=== PATIENT | female | born 1945 | race Caucasian/White ===

== ENCOUNTER 2020-11-15 11:48 | Observation (INO) | payer MEDICARE, SELFPAY ==
[2020-11-15] VITALS (17 sets, daily range): BP systolic 119–166; BP diastolic 57–72; PULSE 80–90; RESP 12–20; TEMP 36.4–36.7; O2SAT 84–100; BMI 22.5
--- NOTE | ~2020-11-15 | US_ITS ---
EXAMINATION: US renal BI EXAM DATE: 11/15/2020 16:26 INDICATION: Renal failure. TECHNIQUE: Multiple grayscale and Doppler images of the kidneys were obtained (by a technologist who performed the scan) and subsequently reviewed. There is no prior study for comparison. FINDINGS: Right kidney: There is normal contour and echogenicity. It measures 9.4 x 4.0 x 4.3 centimeters. Th ere are no focal renal lesions identified. There is no hydronephrosis. Left kidney: There is normal contour and echogenicity. It measures 9.2 x 4.1 x 4.4 centimeters. The re are no focal renal lesions identified. There is no hydronephrosis. Bladder unremarkable. IMPRESSION: 1. Mild bilateral renal atrophy. Reviewed, dictated and finalized at location A. PREVENTION REPRESENTATIVE
--- NOTE | 2020-11-15 11:52 | ED.RECABL ---
HPI - Recheck/Abnormal Lab/Rx General Chief Complaint: Recheck/Abnormal Lab/Rx Stated Complaint: low blood counts Time Seen by Provider: 11/15/20 11:51 History of Present Illness HPI narrative: 75 yo female sent in by PCP for anemia. She reports that she has been increasingly fatigued and SOB for several months. She had labs drawn 2 days ago and was called today and told that she need to come in for a blood tranfusion. She denies dark or bloody stools. She does say that she has noticed blood on the tissue when she wipes her nose. No blood thinners. Related Data Home Medications Medication Instructions Recorded Confirmed fluticasone propionate 50 2 spray NASAL DAILY 08/15/19 11/15/20 mcg/actuation nasal spray,suspension magnesium 250 mg tablet 250 mg PO BID tablet 08/15/19 11/15/20 Allergies Allergy/AdvReac Type Severity Reaction Status Date / Time nitrofurantoin Allergy Intermediate Unknown Verified 11/15/20 17:37 NSAIDS (Non-Steroidal Allergy Intermediate Unknown Verified 11/15/20 17:37 Anti-Inflamma Sulfa (Sulfonamide Allergy Intermediate Unknown Verified 11/15/20 17:37 Antibiotics) tetracycline Allergy Intermediate Unknown Verified 11/15/20 17:37 trazodone Allergy Intermediate Unknown Verified 11/15/20 17:37 estrogens, conjugated Allergy Mild Unknown Verified 11/15/20 17:37 Review of Systems Review of Systems: All systems reviewed & are unremarkable except as noted in HPI and below Constitutional: Constitutional: Reports chills, Reports fatigue and Denies fever(s) Eyes: Eyes: Reports no additional eye complaints ENT: Reports dizziness Cardiovascular: Cardiovascular: Denies chest pain Respiratory: Respiratory: Reports dyspnea on exertion Gastrointestinal: Gastrointestinal: Denies abdominal pain, Denies diarrhea, Denies nausea and Denies vomiting Genitourinary: Genitourinary: Denies hematuria Neurologic: Reports dizziness Hematologic/Lymphatic: Hematologic/Lymphatic: Denies easy bleeding PMFSH Past Medical History Medical History Cervical cancer Status post LEEP/cone. No further treatment needed. Chronic use of opiate drug for therapeutic purpose Degenerative disc disease Fibromyalgia Hypothyroidism Insomnia Irritable bowel syndrome Menieres disease Panic attacks Posttraumatic stress disorder Restless leg syndrome Surgical History Surgical History History of appendectomy History of loop electrical excision procedure (LEEP) For treatment of cervical cancer. No further treatment required. History of ovarian cystectomy History of tonsillectomy History of tubal ligation Status post excision of Rodriguez's neuroma Bilateral. Family History Family History Mother Family history of osteoporosis, Onset Age: 72 Depression, Onset Age: 72 Family history of arthritis, Onset Age: 72 Patient's mother is , Onset Age: 72 Grandparent Hypertension, Onset Age: 67 Cerebrovascular accident, Onset Age: 67 Family history of malignant neoplasm, Onset Age: 80 Family history of heart disease in male family member before age 55, Onset Age: 67 Father Family history of malignant melanoma, Onset Age: 85 Patient's father is , Onset Age: 85 Social History Social History Social History: The patient lives in [place] with her . He has 2 children; she had no children of her own. 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 Smoked for 7 years as a teenager and quit in 1969. No alcohol or illicit substance abuse. She designates her Jaquan Hoffmann as her surrogate decision maker. She wishes to be a do not resuscitate. Spiritual care concerns: No Exam Const: General: no acute distress, alert a
[2020-11-15 12:30] LABS: Basophils Absolute Auto 0.1 K/mm3 (0.0-0.1); Basophils Percent Auto 1.3 % (0.2-1.2); Eosinophils Absolute Auto 0.3 K/mm3 (0-0.3); Eosinophils Percent Auto 3.1 % (0-4.4); Immature Granulocyte Absolute 0.05 K/mm3 (0.00-0.031); Immature Granulocyte Percent A 0.5 % (0-0.5); Lymphocytes Absolute Auto 2.81 K/mm3 (0.9-3.2); Lymphocytes Percent Auto 28.4 % (18.3-44.2); Mean Corpuscular HGB Conc 27.3 g/dl (32-36); Mean Corpuscular Hemoglobin 15.7 pg (26-34); Mean Corpuscular Volume 57.4 fl (80-100); Mean Platelet Volume 8.9 fl (7.4-10.4); Monocytes Absolute Auto 0.9 K/mm3 (0.1-0.6); Monocytes Percent Auto 9.4 % (2.6-8.5); Neutrophils Absolute Auto 5.7 K/mm3 (1.3-6.7); Neutrophils Percent Auto 57.3 % (45.5-73.1); Nucleated Red Blood Cells Perc 0.3 % (0.0-0.2); Platelet Count Result 680 k/mm3 (150-375); Red Blood Count 3.19 M/mm3 (4.2-5.4); Red Cell Distribution Width 17.5 % (11.5-14.5); White Blood Count 9.9 K/mm3 (4.5-10.0)
[2020-11-15 12:39] LABS: INR 0.9; Prothrombin Time 13.1 Seconds (11.1-14.7)
[2020-11-15 12:40] LABS: Partial Thromboplastin Time 26.3 SECONDS (22.3-36.8)
[2020-11-15 12:43] LABS: Alanine Aminotransferase 11 U/L (4-35); Alkaline Phosphatase 75 U/L (38-126); Anion Gap 10 mmol/L (8-16); Aspartate Amino Transferase 25 U/L (14-36); Bilirubin,Total < 0.1 mg/dL (0.2-1.3); Blood Urea Nitrogen 20 mg/dL (7-17); Calcium 8.8 mg/dL (8.4-10.2); Carbon Dioxide 21 mmol/L (22-30); Chloride 100 mmol/L (98-107); Estimated Glomerular Filt Rate 37; Glucose 92 mg/dL (65-105); Potassium 3.9 mmol/L (3.4-5.0); Sodium 131 mmol/L (137-145)
[2020-11-15 12:47] LABS: Hematocrit 18.3 % (37.0-47.0)
[2020-11-15 12:48] LABS: Platelet Estimate Increased (Adequate)
[2020-11-15 12:50] LABS: Anisocytosis 1+ (NORMAL); Hypochromasia 2+ (NORMAL); Microcytosis 1+ (NORMAL); Ovalocytes 1+ (NORMAL); Poikilocytosis 2+ (NORMAL)
[2020-11-15 14:05] LABS: Immature Reticulocyte Fraction 11.2 % (3.0-15.9); Reticulocyte Hemoglobin Conten 15.1 pg (28.2-35.7); Reticulocyte Percent 1.23 % (0.7-4.3); Reticulocytes Absolute 0.04 B/L (32.2-175.7)
[2020-11-15 14:13] LABS: Transferrin 395 mg/dL (206-381)
[2020-11-15] MEDS: SODIUM CHLORIDE 0.9% IV 250 ML 30 ML IV CONT (14:24)
[2020-11-15 14:32] LABS: Iron 16 ug/dL (37-170)
[2020-11-15 14:42] LABS: Percent Iron Saturation 3 % (20-50)
[2020-11-15 15:09] LABS: Ferritin 4.32 ng/mL (11.1-264)
[2020-11-15 15:18] LABS: Folic Acid 3.8 ng/mL (2.76->20); Vitamin B12 > 1000.0 pg/mL (239-931)
--- NOTE | 2020-11-15 16:00 | PM.IMHP ---
H&P: HPI History of Present Illness Date/Time: 11/15/20 15:00 Chief Complaint: ?Low blood count.? Narrative: This is a 75-year-old female with history of anemia off and on iron over the years, hypothyroidism, restless leg syndrome, and chronic pain syndrome who presented to the emergency department at the direction of her primary care provider for evaluation of ?low blood count.? She has not felt 100% like herself dating back to May 2020 when she reportedly had issues with chest pain (throughout the lower ribs and epigastrium) which she attributed to costochondritis. Due to the pain, she stopped doing her exercises and feels that she has become more weak since that time. While the chest pain has resolved she continues to feel weak, despite trying to start back up an exercise routine. In addition to the weakness she has been incredibly fatigued and short of breath with exertion to the point where she has chairs scattered throughout her rooms for her to stop on to rest. She was seen by her primary care provider on November 13 and had labs drawn at that time. Today she was told that she was quite anemic with a hemoglobin and hematocrit of 4.9 and 19.4% respectively and she was directed to the emergency department. With further questioning she has not noticed any significant blood loss however tells me that is not unusual for her to see a small amount of blood on the tissue when she blows her nose. She has occasional heartburn for which she will take an antacid but that is not very frequent and has not increased in intensity or frequency. She takes Bufferin for pain, sometimes none but up to 650 milligrams a day. She has not noticed blood in her stool or dark stools, and fact describes a very light colored stools yesterday. No caffeine or alcohol use. Her weight has remained stable. Review of Systems Review of Systems: Narrative: Twelve systems were reviewed with pertinent positives and negatives as per HPI. The patient has suffered from insomnia since her teenage years, and has been worse over the last several months after she was taken off the Valium that she has to take at nighttime. She has instead taking nortriptyline which does not seem to help and in fact she tells me she has not really slept for the last 3 days due to severe insomnia. Weight has remained stable. No fever, chills, or sweats. No recent cold or flu symptoms. She denies chest pain and pleuritic pain. No nausea or vomiting. Except as documented, all other systems were reviewed and are negative. [facility] Past Medical History Medical History (Updated 11/15/20 @ 18:10 by Ale Looney PA-C) Cervical cancer Status post LEEP/cone. No further treatment needed. Chronic use of opiate drug for therapeutic purpose Degenerative disc disease Fibromyalgia Hypothyroidism Insomnia Irritable bowel syndrome Menieres disease Panic attacks Posttraumatic stress disorder Restless leg syndrome Surgical History Surgical History (Updated 11/15/20 @ 18:10 by Ale Looney PA-C) History of appendectomy History of loop electrical excision procedure (LEEP) For treatment of cervical cancer. No further treatment required. History of ovarian cystectomy History of tonsillectomy History of tubal ligation Status post excision of Rodriguez's neuroma Bilateral. Family History Family History Mother Family history of osteoporosis, Onset Age: 72 Depression, Onset Age: 72 Family history of arthritis, Onset Age: 72 Patient's mother is , Onset Age: 72 Grandparent Hypertension, Onset Age: 67 Cerebrovascular accident, Onset Age: 67 Family history of malignant neoplasm, Onset Age: 80 Family history of heart disease in male family member before age 55, Onset Age: 67 Father Family history of malignant melanoma, Onset Age: 85 Patient's father is , Onset Age: 85 Social History
--- NOTE | 2020-11-15 17:16 | ADMGEN ---
This patient, Katie Cacnino, was admitted to Medical Room 346-01. Patient/family oriented to hospital policies and general routines including ID bracelet, bed and alarms, visiting hours, pain management, procedures, bathroom and other care routines, personal items, smoking policy, room service/diet, and visiting hours. Information on how to activate the Rapid Response Team has been discussed. Patient/Family are encouraged to report perceived risks to care and to ask questions if they do not understand what they are told or what they should do.
[2020-11-15 17:31] LABS: Free T4 Free Thyroxine Reflex 1.29 ng/dL (0.78-2.19)
[2020-11-15] MEDS: SODIUM CHLORIDE 0.9% IV 250 ML 30 ML (18:12)
[2020-11-15 18:46] LABS: Total Triiodothyronine (T3) 1.07 NG/ML (0.97-1.69)
[2020-11-15] MEDS: PANTOPRAZOLE SODIUM IV 40 MG VIAL IV PUSH (20:14)
[2020-11-15] MEDS: TEMAZEPAM (*CRX) 15 MG CAPSULE PO (20:14)
[2020-11-15 21:40] LABS: Hemoglobin 8.5 g/dL (12.0-15.0)
[2020-11-16 04:14] LABS: Basophils Absolute Auto 0.2 K/mm3 (0.0-0.1); Basophils Percent Auto 1.7 % (0.2-1.2); Eosinophils Absolute Auto 0.5 K/mm3 (0-0.3); Eosinophils Percent Auto 5.2 % (0-4.4); Hematocrit 29.9 % (37.0-47.0); Immature Granulocyte Absolute 0.03 K/mm3 (0.00-0.031); Immature Granulocyte Percent A 0.3 % (0-0.5); Lymphocytes Absolute Auto 2.88 K/mm3 (0.9-3.2); Lymphocytes Percent Auto 32.3 % (18.3-44.2); Mean Corpuscular HGB Conc 30.1 g/dl (32-36); Mean Corpuscular Hemoglobin 20.5 pg (26-34); Mean Corpuscular Volume 68.1 fl (80-100); Mean Platelet Volume 8.7 fl (7.4-10.4); Monocytes Percent Auto 10.7 % (2.6-8.5); Neutrophils Absolute Auto 4.4 K/mm3 (1.3-6.7); Neutrophils Percent Auto 49.8 % (45.5-73.1); Platelet Count Result 619 k/mm3 (150-375); Red Blood Count 4.39 M/mm3 (4.2-5.4); Red Cell Distribution Width 27.4 % (11.5-14.5); White Blood Count 8.9 K/mm3 (4.5-10.0)
[2020-11-16 04:31] LABS: Anion Gap 5 mmol/L (8-16); Blood Urea Nitrogen 15 mg/dL (7-17); Calcium 8.8 mg/dL (8.4-10.2); Carbon Dioxide 23 mmol/L (22-30); Chloride 106 mmol/L (98-107); Estimated CRCL calculation 35 ml/min; Estimated Glomerular Filt Rate 54; Glucose 89 mg/dL (65-105); Magnesium 2.2 mg/dL (1.6-2.3); Potassium 4.4 mmol/L (3.4-5.0); Sodium 134 mmol/L (137-145)
[2020-11-16 05:37] VITALS: BP 150/75; PULSE 84; RESP 18; TEMP 36.2; O2SAT 99
[2020-11-16] MEDS: PANTOPRAZOLE SODIUM IV 40 MG VIAL IV PUSH (08:36)
[2020-11-16] MEDS: MAGNESIUM 13.5 MG TABLET (250 MG MAG GLUCONATE) PO (08:36)
[2020-11-16] MEDS: FLUTICASONE PROPIONATE 0.05% NA SPR 16 GM BTL (*BKC) 2 SPRAY NASAL (08:36)
[2020-11-16 10:09] LABS: Hemoglobin 8.8 g/dL (12.0-15.0)
[2020-11-16 10:58] VITALS: O2SAT 100
[2020-11-16 14:00] VITALS: BP 137/54; PULSE 86; RESP 18; TEMP 35.9; O2SAT 100
[2020-11-16] MEDS: IRON SUCROSE COMPLEX 200 MG in SODIUM CHLORIDE 0.9% IV 50 ML 120 MG IVPB (14:03)
[2020-11-16] MEDS: polyethylene glycoL 3350 17 GM POWD.PACK PO (14:29)
[2020-11-16 15:11] LABS: Hematocrit 30.4 % (37.0-47.0); Hemoglobin 9.2 g/dL (12.0-15.0)
--- NOTE | 2020-11-16 15:22 | WPDGICN ---
Assessment and Plan Assessment and plan (1) Acute blood loss anemia: Code(s): D62 - Acute posthemorrhagic anemia Status: Acute Assessment and Plan: when RN called me yesterday, I ordered bowel prep in order to get a colonoscopy with egd today but she refused. I talked to her this morning and she says that would like to see her pcp before doing any procedures. I told her that she could have malignancy like colon cancer, another differential is ulcers, avm's, etc. She has been taking aspirin at home. if she changes her mind I encouraged her to call my office so we can schedule both procedures as outpatient (2) Iron deficiency anemia: Code(s): D50.9 - Iron deficiency anemia, unspecified Status: Acute Assessment and Plan: better after blood transfusion we need to rule out occult gi blood loss but she refused scopes (3) Renal failure: Code(s): N19 - Unspecified kidney failure Status: Acute Assessment and Plan: mild and resolved after fluids (4) Fibromyalgia: Code(s): M79.7 - Fibromyalgia Status: Chronic (5) Insomnia: Code(s): G47.00 - Insomnia, unspecified Status: Chronic GI Consult Note Consult date/time: 11/16/20 15:22 Reason for consult: symptomatic iron deficiency anemia HPI: Katie Cancino is a 75 year old female here with few months of worsening fatigue and progressive shortness of breath on exertion, couple days ago her PCP obtained blood work and showed severe microcytic anemia, she was told to come to ER for further evaluation and received blood transfusion, now she is feeling better. Sometimes noticed blood on the tissue when she wipes her nose. Denies overt gib, melena. Never had EGD and no recent colonoscopy. Denies weight loss. Hb was 4.9, mcv 60 and consistent with iron deficiency. No nsaid's but she uses aspirin as needed for pain. Review of Systems Constitutional: Constitutional: Reports fatigue and Reports lethargy Eyes: Eyes: Reports no additional eye complaints ENT: Reports system reviewed and no additional complaints, except as documented Cardiovascular: Cardiovascular: Denies chest pain Respiratory: Respiratory: Reports dyspnea on exertion Gastrointestinal: Gastrointestinal: Denies hematochezia and Denies nausea Genitourinary: Genitourinary: Denies flank pain Musculoskeletal: Musculoskeletal: Reports no additional musculoskeletal complaints Neurologic: Denies confusion Psychiatric: Psychiatric: Reports no additional psychiatric complaints Endocrine: Endocrine: Denies cold intolerance [facility] Past Medical History Medical History Cervical cancer Status post LEEP/cone. No further treatment needed. Chronic use of opiate drug for therapeutic purpose Degenerative disc disease Fibromyalgia Hypothyroidism Insomnia Irritable bowel syndrome Menieres disease Panic attacks Posttraumatic stress disorder Restless leg syndrome Surgical History Surgical History History of appendectomy History of loop electrical excision procedure (LEEP) For treatment of cervical cancer. No further treatment required. History of ovarian cystectomy History of tonsillectomy History of tubal ligation Status post excision of Rodriguez's neuroma Bilateral. Family History Family History Mother Family history of osteoporosis, Onset Age: 72 Depression, Onset Age: 72 Family history of arthritis, Onset Age: 72 Patient's mother is , Onset Age: 72 Grandparent Hypertension, Onset Age: 67 Cerebrovascular accident, Onset Age: 67 Family history of malignant neoplasm, Onset Age: 80 Family history of heart disease in male family member before age 55, Onset Age: 67 Father Family history of malignant melanoma, Onset Age: 85 Patient's fathe
--- NOTE | 2020-11-16 15:52 | PM.DS ---
DS: Admitting Diagnosis Admitting Diagnosis Admitting Diagnosis: Anemia DS: Discharge Diagnosis Discharge Diagnosis (1) Profound anemia: Code(s): D64.9 - Anemia, unspecified Status: Acute Assessment and Plan: The patient has profound microcytic anemia. Suspicious for occult GI loss. she was transfused 2 units PRBC on 11/15/2020. Hemoglobin stabilized following. her vital signs were stable and she had no evidence of ongoing blood loss, although occult GI loss was unable to be ruled out. She was unable to provide a stool specimen to evaluate for occult blood. EGD and colonoscopy recommended per GI, but patient refused this procedure and wished to see her primary care provider before proceeding. She was educated on risks of deferring this procedure, which she understood. She will repeat H&H on Thursday, 2 days following discharge, and will need to promptly follow up with her PCP to schedule EGD and colonoscopy. Discussed worrisome signs of anemia/blood loss for which to return. Iron studies consistent with iron deficiency anemia and she was started on PO iron supplementation. Also started on protonix. Educated to avoid NSAIDs/aspirin until further evaluation. (2) Renal failure: Code(s): N19 - Unspecified kidney failure Status: Acute Assessment and Plan: Creatinine was 0.92 in May 2018, no labs available since that time. creatinine slightly elevated at 1.4 upon presentation, likely due to hypoperfusion from hypovolemia. Creatinine improved following transfusion and was 1.0 at time of discharge. renal ultrasound showed mild bilateral renal atrophy without hydronephrosis. (3) Hypothyroidism: Code(s): E03.9 - Hypothyroidism, unspecified Status: Chronic Assessment and Plan: TSH slightly elevated with normal free T4 and T3. Continue levothyroxine. plan for repeat TSH in 4-6 weeks. No adjustment made to her levothyroxine. (4) Chronic use of opiate drug for therapeutic purpose: Code(s): Z79.891 - [employer] (current) use of opiate analgesic Status: Acute Assessment and Plan: Tramadol as needed for chronic pain. discussed maintaining a bowel regimen to avoid constipation with opioids. (5) Insomnia: Code(s): G47.00 - Insomnia, unspecified Status: Chronic Assessment and Plan: Patient reports she Had not slept for 2-3 days and was very exhausted. She received a 1 time dose of Restoril. She reports she slept well following. Continue nortriptyline. Follow-up with PCP. DS: Summary Hospital Course Reason for hospitalization: anemia Hospital Course: date of admission: 11/15/2020 date of discharge: 11/16/2020 Katie dugan is a 75-year-old female with history of anemia, hypothyroidism, restless leg syndrome, and chronic pain syndrome who presented to the emergency department on 11/15/2020 at the direction of her primary care provider due to findings of anemia on recent outpatient lab work. She reports that she has been feeling poorly for quite some time with generalized fatigue, weakness, and shortness of breath. She was informed that her hemoglobin and hematocrit were 4.9 19.4% respectively on outpatient labs, therefore she was directed to the ED. Upon presentation to the emergency department, her vital signs were stable hemoglobin 5.0, hematocrit 18.3, platelets elevated at 680, BUN and creatinine slightly elevated with additional electrolytes stable. She was admitted to the hospitalist service for further evaluation and management was seen in consultation by gastroenterology. Please see above for further details. Was recommended that she obtain EGD and colonoscopy to evaluate for GI bleeding, however she wished to defer this procedure. Her hemoglobin and hematocrit stabilized following transfusion and she began feeling much better. She wished to return home and follow-up with her primary care provider as soon as possible.
== END 2020-11-16 16:41 | disposition home or self-care (01) ==
LOC: ANHED 12:15 → ANH3MED 16:16
PROVIDERS: Physician Assistant; Admitting Provider Internal Medicine; Emergency Provider Emergency Medicine; PCP Internal Medicine; Visit Provider Physician Assistant
DX: D64.9 Anemia, unspecified (principal); Z23 Encounter for immunization; N19 Unspecified kidney failure; E03.9 Hypothyroidism, unspecified; Z79.891 Long term (current) use of opiate analgesic; G47.00 Insomnia, unspecified; G89.4 Chronic pain syndrome; G25.81 Restless legs syndrome; Z85.41 Personal history of malignant neoplasm of cervix uteri
CPT/HCPCS: 36415; 36430; 76775; 80048; 80053; 82607; 82728; 82746; 83540; 83550; 83735; 84439; 84443; 84466; 84480; 85014; 85018; 85025; 85046; 85610; 85730; 86850; 86900; 86901; 86923; 90471; 90653; 96361; 96365; 96375; 96376; 99285; A9270; C9113; G0008; G0378; J1756; J7050; P9016

== ENCOUNTER 2020-11-19 14:52 | Outpatient (CLI) | payer MEDICARE, SELFPAY ==
[2020-11-19 15:58] LABS: Basophils Absolute Auto 0.1 K/mm3 (0.0-0.1); Basophils Percent Auto 0.7 % (0.2-1.2); Eosinophils Absolute Auto 0.1 K/mm3 (0-0.3); Eosinophils Percent Auto 1.4 % (0-4.4); Hematocrit 30.2 % (37.0-47.0); Immature Granulocyte Absolute 0.06 K/mm3 (0.00-0.031); Immature Granulocyte Percent A 0.7 % (0-0.5); Lymphocytes Absolute Auto 1.73 K/mm3 (0.9-3.2); Lymphocytes Percent Auto 21.6 % (18.3-44.2); Mean Corpuscular HGB Conc 29.8 g/dl (32-36); Mean Corpuscular Hemoglobin 20.1 pg (26-34); Mean Corpuscular Volume 67.4 fl (80-100); Mean Platelet Volume 8.7 fl (7.4-10.4); Monocytes Percent Auto 12.9 % (2.6-8.5); Neutrophils Percent Auto 62.7 % (45.5-73.1); Platelet Count Result 651 k/mm3 (150-375); Red Blood Count 4.48 M/mm3 (4.2-5.4); Red Cell Distribution Width 29.8 % (11.5-14.5)
[2020-11-19 18:01] LABS: Hypochromasia 2+ (NORMAL); Ovalocytes 1+ (NORMAL); Platelet Estimate Adequate (Adequate); Target Cells 1+ (NORMAL)
== END 2020-11-19 14:53 | disposition home or self-care (01) ==
LOC: ANHLAB 14:54
PROVIDERS: PCP Internal Medicine; Visit Provider Physician Assistant
DX: D50.9 Iron deficiency anemia, unspecified (principal); D47.3 Essential (hemorrhagic) thrombocythemia
CPT/HCPCS: 36415; 85025

== ENCOUNTER → 2021-01-05 01:02 | Outpatient (CLI) | payer MEDICARE, SELFPAY ==
[2021-01-05 20:53] LABS: SARS-CoV-2 RNA PCR Negative
== END ==
PROVIDERS: PCP Internal Medicine; Visit Provider Internal Medicine Gastroenterology
DX: Z01.812 Encounter for preprocedural laboratory examination (principal); Z20.822 Contact with and (suspected) exposure to COVID-19
CPT/HCPCS: C9803; U0003; U0005

== ENCOUNTER 2021-01-08 02:39 | Day surgery (SDC) | payer MEDICARE, SELFPAY ==
[2020-12-31 13:45] VITALS: BMI 20.1
[2021-01-08 06:33] VITALS: BP 145/62; PULSE 97; RESP 16; TEMP 36.4; O2SAT 100; BMI 20.8
[2021-01-08] MEDS: LACTATED RINGERS 1,000 ML 150 ML IV CONT (06:45)
--- NOTE | 2021-01-08 07:26 | WPDANESEPPF ---
Anes - Initial Pre Proc Eval Procedure: Operation Date: 01/08/21 07:30 Proposed Procedures p Esophagogastroduodenoscopy & Colonoscopy - Torito Pickard MD Date/Time: 01/08/21 07:26 Surgeon: Torito Pickard MD Pre Op Diagnosis: ELIZABETH Patient Data Age: 75 Gender: F Height: 5 ft 2 in Weight: 51.7 kg Last Vital Signs Temp 97.5 F L 01/08/21 06:33 Pulse 97 01/08/21 06:33 Resp 16 01/08/21 06:33 BP 145/62 H 01/08/21 06:33 Pulse Ox 100 01/08/21 06:33 Allergies Allergy/AdvReac Type Severity Reaction Status Date / Time nitrofurantoin Allergy Intermediate Unknown Verified 01/08/21 06:32 NSAIDS (Non-Steroidal Allergy Intermediate Unknown Verified 01/08/21 06:32 Anti-Inflamma Sulfa (Sulfonamide Allergy Intermediate Unknown Verified 01/08/21 06:32 Antibiotics) tetracycline Allergy Intermediate Unknown Verified 01/08/21 06:32 trazodone Allergy Intermediate Unknown Verified 01/08/21 06:32 estrogens, conjugated Allergy Mild Unknown Verified 01/08/21 06:32 Home Medications Medication Instructions Recorded Confirmed Type fluticasone propionate 50 2 spray NASAL DAILY 08/15/19 12/31/20 History mcg/actuation nasal spray,suspension magnesium 250 mg tablet 250 mg PO BID tablet 08/15/19 12/31/20 History levothyroxine 50 mcg tablet 50 mcg PO DAILY #90 tablet 11/14/20 12/31/20 Rx ferrous gluconate 324 mg (38 mg 324 mg PO DAILY #90 tablet 12/18/20 12/31/20 Rx iron) tablet tramadol 50 mg tablet 50 mg PO Q6H PRN #120 tablet 12/31/20 Rx Patient hx anesthesia problems: none Family hx anesthesia problems: none PMFSH Past Medical History Medical History Acute blood loss anemia Cervical cancer Status post LEEP/cone. No further treatment needed. Chronic use of opiate drug for therapeutic purpose Degenerative disc disease Fibromyalgia Hypothyroidism Insomnia Iron deficiency anemia Irritable bowel syndrome Menieres disease Panic attacks Posttraumatic stress disorder Restless leg syndrome Surgical History Surgical History History of appendectomy History of loop electrical excision procedure (LEEP) For treatment of cervical cancer. No further treatment required. History of ovarian cystectomy History of tonsillectomy History of tubal ligation Status post excision of Rodriguez's neuroma Bilateral. Family History Family History Mother Family history of osteoporosis, Onset Age: 72 Depression, Onset Age: 72 Family history of arthritis, Onset Age: 72 Patient's mother is , Onset Age: 72 Grandparent Hypertension, Onset Age: 67 Cerebrovascular accident, Onset Age: 67 Family history of malignant neoplasm, Onset Age: 80 Family history of heart disease in male family member before age 55, Onset Age: 67 Father Family history of malignant melanoma, Onset Age: 85 Patient's father is , Onset Age: 85 Social History Social History Social History: The patient lives in [place] with her . He has 2 children; she had no children of her own. 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 No alcohol or illicit substance abuse. She designates her Jaquan Hoffmann as her surrogate decision maker. She wishes to be a do not resuscitate. Smoking packs per day: 1 Smoking cigarettes per day: 20.0 Years smoked: 7 Smoking pack-years: 7.00 Smoking status: Former smoker Tobacco type: cigarettes Alcohol intake: never Substance use: never Substance use type: does not use Living arrangements: with family Spiritual care concerns: No Anes - Eval Final PreProcedure Day of Procedure 01/08/21 07:26 Patient miller
--- NOTE | 2021-01-08 07:32 | PM.HPGS ---
History of Present Illness History of Present Illness Consent: Risks, benefits, and alternatives have been discussed and questions answered. Patient agrees to proceed with procedure. Chief complaint: ELIZABETH Narrative: Katie Cancino is a 75 year old female with recent hospitalization because symptomatic ELIZABETH, never had scopes Review of Systems Constitutional: Constitutional: Denies headache(s) and Denies weakness Eyes: Eyes: Denies blurry vision ENT: Reports Normal hearing present, Denies headache(s) and Denies neck pain Cardiovascular: Cardiovascular: Denies chest pain and Denies dyspnea Respiratory: Respiratory: Denies dyspnea Gastrointestinal: Gastrointestinal: Reports no additional gastrointestinal complaints Genitourinary: Genitourinary: Denies dysuria Musculoskeletal: Musculoskeletal: Denies neck pain Integumentary/Breasts: Skin/Breast: Denies dry skin Neurologic: Reports Normal hearing present, Denies headache(s) and Denies weakness Psychiatric: Psychiatric: Denies anxiety Endocrine: Endocrine: Denies change in body appearance Hematologic/Lymphatic: Hematologic/Lymphatic: Denies easy bleeding Allergic/Immunologic: Allergic/Immunologic: Denies urticaria PMFSH Past Medical History Medical History Acute blood loss anemia Cervical cancer Status post LEEP/cone. No further treatment needed. Chronic use of opiate drug for therapeutic purpose Degenerative disc disease Fibromyalgia Hypothyroidism Insomnia Iron deficiency anemia Irritable bowel syndrome Menieres disease Panic attacks Posttraumatic stress disorder Restless leg syndrome Surgical History Surgical History History of appendectomy History of loop electrical excision procedure (LEEP) For treatment of cervical cancer. No further treatment required. History of ovarian cystectomy History of tonsillectomy History of tubal ligation Status post excision of Rodriguez's neuroma Bilateral. Family History Family History Mother Family history of osteoporosis, Onset Age: 72 Depression, Onset Age: 72 Family history of arthritis, Onset Age: 72 Patient's mother is , Onset Age: 72 Grandparent Hypertension, Onset Age: 67 Cerebrovascular accident, Onset Age: 67 Family history of malignant neoplasm, Onset Age: 80 Family history of heart disease in male family member before age 55, Onset Age: 67 Father Family history of malignant melanoma, Onset Age: 85 Patient's father is , Onset Age: 85 Social History Social History Social History: The patient lives in [place] with her . He has 2 children; she had no children of her own. Retired [employer]. Smoked for 7 years as a teenager and quit in 1969. No alcohol or illicit substance abuse. She designates her Jaquan Hoffmann as her surrogate decision maker. She wishes to be a do not resuscitate. Smoking packs per day: 1 Smoking cigarettes per day: 20.0 Years smoked: 7 Smoking pack-years: 7.00 Smoking status: Former smoker Tobacco type: cigarettes Alcohol intake: never Substance use: never Substance use type: does not use Living arrangements: with family Spiritual care concerns: No Meds Home Medications and Allergies Home Medications Medication Instructions Recorded Confirmed Type fluticasone propionate 50 2 spray NASAL DAILY 08/15/19 12/31/20 History mcg/actuation nasal spray,suspension magnesium 250 mg tablet 250 mg PO BID tablet 08/15/19 12/31/20 History levothyroxine 50 mcg tablet 50 mcg PO DAILY #90 tablet 11/14/20 12/31/20 Rx ferrous gluconate 324 mg (38 mg 324 mg PO DAILY #90 tablet 12/18/20 12/31/20 Rx iron) tablet tramadol 50
[2021-01-08 08:14] VITALS: BP 127/48; PULSE 80; RESP 22; O2SAT 100
[2021-01-08 08:24] VITALS: BP 122/62; PULSE 81; RESP 20; O2SAT 100
[2021-01-08 08:34] VITALS: BP 121/92; PULSE 75; RESP 18; O2SAT 100
== END 2021-01-08 08:39 | disposition home or self-care (01) ==
PROVIDERS: PCP Internal Medicine; Visit Provider Internal Medicine Gastroenterology
PROC: 0DJ08ZZ Inspection of Upper Intestinal Tract, Via Natural or Artificial Opening Endoscopic (ICD-10-PCS; CPT 43235; principal; 2021-01-08 07:30)
DX: D50.0 Iron deficiency anemia secondary to blood loss (chronic) (principal); K29.50 Unspecified chronic gastritis without bleeding; K22.2 Esophageal obstruction; K31.5 Obstruction of duodenum; K44.9 Diaphragmatic hernia without obstruction or gangrene; K58.9 Irritable bowel syndrome, unspecified; K64.8 Other hemorrhoids; M79.7 Fibromyalgia; E03.9 Hypothyroidism, unspecified; H81.09 Meniere's disease, unspecified ear; G25.81 Restless legs syndrome; F41.0 Panic disorder [episodic paroxysmal anxiety]; F43.10 Post-traumatic stress disorder, unspecified; Z85.41 Personal history of malignant neoplasm of cervix uteri
CPT/HCPCS: 43249; 43245; 43239; 45378; 87081; 88305; C1726; J2704; J7120

== ENCOUNTER 2021-05-10 03:40 | Day surgery (SDC) | payer MEDICARE, SELFPAY ==
[2021-05-01 12:19] VITALS: BMI 21.7
[2021-05-10 09:52] VITALS: BP 123/48; PULSE 83; RESP 16; TEMP 36.2; O2SAT 100; BMI 22.0
[2021-05-10] MEDS: LACTATED RINGERS 1,000 ML 150 ML IV CONT (09:59)
--- NOTE | 2021-05-10 10:07 | WPDANESEPPF ---
Anes - Initial Pre Proc Eval Procedure: Operation Date: 05/10/21 10:30 Proposed Procedures p Esophagogastroduodenoscopy - Torito Pickard MD Date/Time: 05/10/21 10:07 Surgeon: Torito Pickard MD Pre Op Diagnosis: peptic ulcer disease k31.89 Patient Data Age: 75 Gender: F Height: 1.57 m Weight: 54.7 kg Last Vital Signs Temp 97.1 F L 05/10/21 09:52 Pulse 83 05/10/21 09:52 Resp 16 05/10/21 09:52 BP 123/48 L 05/10/21 09:52 Pulse Ox 100 05/10/21 09:52 Allergies Allergy/AdvReac Type Severity Reaction Status Date / Time nitrofurantoin Allergy Intermediate Unknown Verified 05/10/21 09:52 NSAIDS (Non-Steroidal Allergy Intermediate Unknown Verified 05/10/21 09:52 Anti-Inflamma Sulfa (Sulfonamide Allergy Intermediate Unknown Verified 05/10/21 09:52 Antibiotics) tetracycline Allergy Intermediate Unknown Verified 05/10/21 09:52 trazodone Allergy Intermediate Unknown Verified 05/10/21 09:52 estrogens, conjugated Allergy Mild Unknown Verified 05/10/21 09:52 Home Medications Medication Instructions Recorded Confirmed Type fluticasone propionate 50 2 spray NASAL DAILY 08/15/19 05/01/21 History mcg/actuation nasal spray,suspension magnesium 250 mg tablet 250 mg PO BID tablet 08/15/19 05/01/21 History ferrous gluconate 324 mg (38 mg 324 mg PO DAILY #90 tablet 12/18/20 05/01/21 Rx iron) tablet Patient hx anesthesia problems: none Family hx anesthesia problems: none PMFSH Past Medical History Medical History (Updated 04/25/21 @ 13:36 by Torito Pickard MD) Acute blood loss anemia Cervical cancer Status post LEEP/cone. No further treatment needed. Chronic use of opiate drug for therapeutic purpose Degenerative disc disease Fibromyalgia Gastritis and duodenitis Hypothyroidism Insomnia Iron deficiency anemia Irritable bowel syndrome Menieres disease Panic attacks Posttraumatic stress disorder Restless leg syndrome Stricture, duodenum Surgical History Surgical History History of appendectomy History of loop electrical excision procedure (LEEP) For treatment of cervical cancer. No further treatment required. History of ovarian cystectomy History of tonsillectomy History of tubal ligation Status post excision of Rodriguez's neuroma Bilateral. Family History Family History Mother Family history of osteoporosis, Onset Age: 72 Depression, Onset Age: 72 Family history of arthritis, Onset Age: 72 Patient's mother is , Onset Age: 72 Grandparent Hypertension, Onset Age: 67 Cerebrovascular accident, Onset Age: 67 Family history of malignant neoplasm, Onset Age: 80 Family history of heart disease in male family member before age 55, Onset Age: 67 Father Family history of malignant melanoma, Onset Age: 85 Patient's father is , Onset Age: 85 Social History Social History Social History: The patient lives in [place] with her . He has 2 children; she had no children of her own. 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 Smoked for 7 years as a teenager and quit in 1969. No alcohol or illicit substance abuse. She designates her Jaquan Hoffmann as her surrogate decision maker. She wishes to be a do not resuscitate. Smoking packs per day: 1 Smoking cigarettes per day: 20.0 Years smoked: 7 Smoking pack-years: 7.00 Smoking status: Former smoker Tobacco type: cigarettes Alcohol intake: never Substance use: former Substance use type: marijuana Other substance usage details: 20's Living arrangements: with family Gender identity (if verbalized by the patient): Female Spiritual care concerns: No Anes - Eval Final PreProcedure Day of Procedure 05/10/21 10:07
--- NOTE | 2021-05-10 10:21 | WPDHPUPDATE1 ---
History and Physical Update Update Date/Time: 05/10/21 10:21 History and Physical has been reviewed, including an updated exam of the patient. There are NO changes in the patient's condition. Risks, benefits, and alternatives have been discussed and questions answered. Patient agrees to proceed with procedure.
[2021-05-10 10:40] VITALS: BP 101/51; PULSE 72; RESP 18; O2SAT 100
[2021-05-10 10:50] VITALS: BP 110/67; PULSE 78; RESP 18; O2SAT 100
[2021-05-10 11:00] VITALS: BP 118/56; PULSE 67; RESP 20; O2SAT 100
== END 2021-05-10 11:17 | disposition home or self-care (01) ==
PROVIDERS: PCP Family Medicine; Visit Provider Internal Medicine Gastroenterology
PROC: 0DJ08ZZ Inspection of Upper Intestinal Tract, Via Natural or Artificial Opening Endoscopic (ICD-10-PCS; CPT 43235; principal; 2021-05-10 10:30)
DX: D50.9 Iron deficiency anemia, unspecified (principal); K44.9 Diaphragmatic hernia without obstruction or gangrene; K22.2 Esophageal obstruction; K29.50 Unspecified chronic gastritis without bleeding; K29.90 Gastroduodenitis, unspecified, without bleeding; K31.5 Obstruction of duodenum; E03.9 Hypothyroidism, unspecified; M79.7 Fibromyalgia; K58.9 Irritable bowel syndrome, unspecified; H81.09 Meniere's disease, unspecified ear; G25.81 Restless legs syndrome; F43.10 Post-traumatic stress disorder, unspecified; F41.0 Panic disorder [episodic paroxysmal anxiety]; Z85.41 Personal history of malignant neoplasm of cervix uteri; Z79.891 Long term (current) use of opiate analgesic; Z87.891 Personal history of nicotine dependence
CPT/HCPCS: 43239; 88305; J2001; J2704; J7120

== ENCOUNTER 2025-01-09 14:18 | Outpatient (CLI) | payer MEDICARE, SELFPAY ==
--- OUTSIDE RECORDS SUMMARY | 2025-01-09 16:25 | XMS_ITS | Clinical Summary ---
Author Organization [facility] Digital Assent Address [address] [facility] [place] [address] Care Team Providers Care Coke Worker Name Role Phone Obdulio Gauthier MD Primary Care Provider Source Comments [facility],non-owned Affiliates and Associated Physician Practices is amultiple site organization consisting of ambulatory clinics and hospital sitesin [place], [place], [place] and [place]. This disclosure is being madepursuant to the Care Everywhere program and may not contain all information available regarding this patient. Last updated 18.[facility] [employer] Allergies Active Allergy Reactions Criticality Noted Date Comments Estrogens Conjugated 06/29/2017 Nitrofurantoin 06/29/2017 Shellfish Allergy 06/29/2017 scallops Sulfa Drugs 06/29/2017 Tetracycline 06/29/2017 Immunizations Immunization Administration Dates Next Due INFLUENZA VACCINE, HIGH-DOSE , QUADR. (FLUZONE HIGH-DOSE QUADRIVALENT; 65Y+), 0.7 ML (HD-IIV4) 07/06/2018,06/29/2017 Social History Tobacco Use Types Packs/Day Years Used Date Smoking Tobacco: Never Assessed Comments Unknown Sex and Gender Information Value Date Recorded Sex Assigned at Not on file Legal Sex Female 9:48 AM CDT Gender Identity Not on file Sexual Orientation Not on file Last Filed Vital Signs Vital Sign Reading Time Taken Comments Blood Pressure 110/60 02/01/2016 12:38 PM CDT Pulse 88 02/01/2016 12:38 PM CDT Temperature 36.2 C (97.1 F) 02/01/2016 12:36 PM CDT Respiratory Rate 14 02/01/2016 12:3 6 PM CDT Oxygen Saturation 98% 02/01/2016 12: 38 PM CDT Inhaled Oxygen Concentration - - Weight 52.1 kg (114 lb 12.8 oz) 016 12:36 PM CDT Height 157.5 cm (5' 2 ) 02/01/2016 12:3 6 PM CDT Body Mass Index 21 02/01/2016 12:36 PM CDT Plan of Treatment Health Maintenance Due Date Last Done Comments BONE DENSITY TESTING 1945 HEPATITIS C SCREENING 05/26/1963 DTAP/TDAP/TD VACCINES (1 - Tdap) 1966 PNEUMOCOCCAL VACCINE 50+ (1 of 1 - PCV) 1997 ZOSTER VACCINE (1 of 2) 1997 Respiratory Syncytial Virus (RSV) Vaccine Pt: or over 60 yrs (1 - 1-dose 75+ series) 2022 COVID-19 VACCINE (1 - 2023-2 5 season) 2024 DEPRESSION SCREENING 09/14/2024 INFLUENZA VACCINE (Season Ended) 2025 07/06/2018, 06/29/2017 HEPATITIS B VACCINE Aged Out No longe r eligible based on patient's age to complete this topic HIB VACCINE Aged Out No longer eligi ble based on patient's age to complete this topic HPV VACCINE Aged Out No longer eligi ble based on patient's age to complete this topic MENINGOCOCCAL (Group B) VACCINE SHARED DECISION-MAKING Aged Out No longer eligible based on patient's age to complete this topic MENINGOCOCCAL GROUPS A/C/Y/W VACCINE Aged Out No longer eligible b ased on patient's age to complete this topic [place] [phone] [facility] MEDICARE [facility] MEDICARE Care Teams Coke Worker Relationship Specialty Start Date End Date Obdulio Gauthier MD [address] [address] PCP - General 01/12/18
--- OUTSIDE RECORDS SUMMARY | 2025-01-09 16:25 | XMS_ITS | Clinical Summary ---
Author Organization [facility] Address [address] [place] [id number] Care Team Providers Care Refractive Surgeon Name Role Phone Unavailable Primary Care Provider Unavailabl e Social History Tobacco Use Types Packs/Day Years Used Date Smoking Tobacco: Never Assessed Comments Unknown Sex and Gender Information Value Date Recorded Sex Assigned at Not on file Legal Sex Female 2:18 PM CDT Gender Identity Not on file Sexual Orientation Not on file Plan of Treatment Health Maintenance Due Date Last Done Comments Hepatitis C 1965 DTaP, Tdap and Td Vaccines ( 1 - Tdap) 1966 Pneumococcal Vaccine: 50+ Ye ars (1 of 1 - PCV) 1997 Zoster Vaccines (1 of 2) 1997 Dexa Scan (General) 2012 RSV Immunization or 60+ Years (1 - 1-dose 75+ series) 2022 COVID-19 Vaccine (2023-2 5 season) 2024 Meningococcal B Vaccine Aged Out No l onger eligible based on patient's age to complete this topic Meningococcal Vaccine Aged Out No surekha agustin eligible based on patient's age to complete this topic RSV Immunizations Under 20 Months Aged Out No longer eligible based on patient's age to complete this topic
--- OUTSIDE RECORDS SUMMARY | 2025-01-09 16:26 | XMS_ITS | Data Portability ---
Author Organization [facility] [employer], Main Office Address [address] [place] [address] Assessment No assessment recorded. Plan of Treatment Reminders Order Date Submit Date Provider Last Modified By Organization Details Last Modified Time Details Appointments None recorded. Lab ferritin, serum or plasma 2023 024 [email or web address] 4 Not available 4 14:00:07 iron + total iron-bernie ng capacity (TIBC), serum 2023 024 [email or web address] 4 Not available 4 14:00:25 CBC w/ auto diff 2023 024 [email or web address] 4 Not available 4 14:00:40 vitamin D3, 25-hydroxy , serum 2023 024 [email or web address] 4 Not available 4 14:00:57 TSH, serum or plasma 2023 024 [email or web address] 4 Not available 4 13:58:58 T4, free, serum 2023 024 [email or web address] 4 Not available 4 13:59:15 vitamin B12, serum 2023 024 [email or web address] 4 Not available 4 13:59:34 folate, serum 2023 024 [email or web address] 4 Not available 4 13:59:50 vitamin D, 25-hydroxy , total, serum 2022 023 [email or web address] Not available 3 10:39:52 T4, free, serum 2022 023 [email or web address] Not available 3 10:41:02 TSH, serum or plasma 2022 023 [email or web address] Not available 10:41:31 BMP, serum or plasma 2022 023 [email or web address] Not available 3 10:43:19 iron + total iron-bernie ng capacity (TIBC), serum 2022 023 [email or web address] Not available 10:41:59 ferritin, serum or plasma 2022 023 [email or web address] Not available 10:42:31 CBC w/ auto diff 2022 023 [email or web address] Not available 10:42:55 vitamin B12, serum 2022 023 Not available 10:39:07 folate, serum 2022 023 [email or web address] Not available 10:40:29 Referral None recorded. Procedures None recorded. Surgeries None recorded. Imaging None recorded. Medication Orders trazodone 100 mg tablet 2023 024 [facility] [address] [place], [address], 4 14:30:51 Patient TargetsNo targets recorded. Patient Instructions Encounter Date Encounter Id Patient Instructions Last Modified By Organization Details Last Modified Time 05/20/2023 [id number] dementia rating scale-2* MEMO Not available 05/20/2023 13:16:01 multi-dimensiona l health assessment questionnaire* MEMO Not available 05/20/2023 13:15:41 care plan* MEMO Not available 05/20 13:15:10 advance directiv es: care instructions Not available 05/20/2023 10:52:41 advance care planning: care instructions Not available 05/20/2023 10:52:41 [place] Advance Directives Not available 05/20/2023 10:52:41 Personalized Hea lth Plan and Screening Recommendations Advance Directives - Do you have one? Advance Directives - Do we have your advance directive on file in your health record? Primary Prevention/Interven tion (prevents or decreases the chance of common diseases from occurring) Smoking Risk: Alcohol Misuse Screening: Weight: Physical activity: Nutrition: Fall Risk (screened today): Vaccines Pneumococcal: Ordered Recommended today Recommended today, but you have declined No further needed Influenza: Your next one in the fall of this year Chronic Disease Risks Stroke: I have no recommendations Act rob diagnosis, Continue current treatment plan Heart Attack: I have no recommendations Act rob diagnosis, Continue current treatment plan Clogging of the Arteries: I have no recommendations Act rob diagnosis, Continue current treatment plan Diabetes: Active diagnosis, Continue current treatment plan Secondary Prevention/Interven tion (detects treatable diseases before they may cause symptoms, disability, or ) Breast Cancer Screening with mammogram: Your next mammogram: Ordered Recommended today Recommended today, but you have declined Cervical/Uterine/Ov luis antonio Cancer Screening: No screening necessary Osteoporosis Screening: Your next DEXA in: Ordered Recomme nded today Date Screening Last Performed: Colon Cancer Screening: Colonoscopy No screening necessary Date Screening Last Performed: __12/2020 Eye Disease Screening: Dementia Risk: Depression Screening: Active diagnosis, Continue current treatment plan Not available 05/20/2023 10:57:59 Reason for Referral None Reported. Results Created Date Observation Date Name Description Value Unit Range Abnormal Flag Note LastModifiedBy Organization Detail LastModifiedTime 04/08/2004/08/2023 CBC/C OMPLE TE BLD COUNT W/DIF F white blood cells 7.4 x10'3 /uL 4.2-10 .8 Not Available [facility] (Lab) [address] [place], [address], 04/08/2023 19:51:24 04/08/2004/08/2023 CBC/C OMPLE TE BLD COUNT W/DIF F red blood cells 4.21 x10'6 /uL 3.80-5 .20 Not Available [facility] (Lab) [address] [place], [address], 04/08/2023 19:51:24 04/08/20 23 04/08/2023 CBC/C OMPLE TE BLD COUNT W/DIF F hemoglobin 11.0 g/dL 12.0-1 5.6 low Not Available [facility] (Lab) [address] [place], [address], 04/08/2023 19:51:24 04/08/20 23 04/08/2023 CBC/C OMPLE TE BLD COUNT W/DIF F hematocrit 36.2 % 35.7-4 5.7 Not Available [facility] (Lab) [address] [place], [address], 04/08/2023 19:51:24 04/08/20 23 04/08/2023 CBC/C OMPLE TE BLD COUNT W/DIF F mean red cell volume 86.0 fL 82.0-9 9.0 Not Available [facility] (Lab) [address] [place], [address], 04/08/2023 19:51:24 04/08/20 23 04/08/2023 CBC/C OMPLE TE BLD COUNT W/DIF F mean red cell hemoglobin 26.1 pg 27.0-3 3.0 low Not Available [facility] (Lab) [address] [place], [address], 04/08/2023 19:51:24 04/08/20 23 04/08/2023 CBC/C OMPLE TE BLD COUNT W/DIF F mean RBC HGB concentratio n 30.4 g/dL 31.0-3 6.0 low Not Available [facility] (Lab) [address] [place], [address], 04/08/2023 19:51:24 04/08/20 23 04/08/2023 CBC/C OMPLE TE BLD COUNT W/DIF F red cell distribution width 14.0 % 11.8-1 5.5 Not Available [facility] (Lab) [address] [place], [address], 04/08/2023 19:51:24 04/08/2004/08/2023 CBC/C OMPLE TE BLD COUNT W/DIF F platelets 443 x10'3 /uL 150-40 0 high Not Available [facility] (Lab) [address] [place], [address], 04/08/2023 19:51:24 04/08/2004/08/2023 CBC/C OMPLE TE BLD COUNT W/DIF F mean platelet volume 9.9 fL 9.0-12 .4 Not Available [facility] (Lab) [address] [place], [address], 04/08/2023 19:51:24 04/08/2004/08/2023 CBC/C OMPLE TE BLD COUNT W/DIF F neutrophils 52.0 % 39.0-7 2.0 Not Available [facility] (Lab) [address] [place], [address], 04/08/2023 19:51:24 04/08/2004/08/2023 CBC/C OMPLE TE BLD COUNT W/DIF F lymphocytes 34.6 % 16.0-4 7.0 Not Available [facility] (Lab) [address] [place], [address], 04/08/2023 19:51:24 04/08/2004/08/2023 CBC/C OMPLE TE BLD COUNT W/DIF F monocytes 9.7 % 5.0-12 .0 Not Available [facility] (Lab) [address] [place], [address], 04/08/2023 19:51:24 04/08/20 23 04/08/2023 CBC/C OMPLE TE BLD COUNT W/DIF F eosinophils 2.7 % 1.0-7. 0 Not Available [facility] (Lab) [address] [place], [address], 04/08/2023 19:51:24 04/08/2004/08/2023 CBC/C OMPLE TE BLD COUNT W/DIF F basophils 0.7 % 0.0-2. 0 Not Available [facility] (Lab) [address] [place], [address], 04/08/2023 19:51:24 04/08/2004/08/2023 CBC/C OMPLE TE BLD COUNT W/DIF F immature granulocytes 0.3 % 0.00-0 .50 Not Available [facility] (Lab) [address] [place], [address], 04/08/2023 19:51:24 04/08/2004/08/2023 CBC/C OMPLE TE BLD COUNT W/DIF F neutrophils, absolute count 3.85 x10'3 /uL 1.5-8. 0 Not Available [facility] (Lab) [address] [place], [address], 04/08/2023 19:51:24 04/08/2004/08/2023 CBC/C OMPLE TE BLD COUNT W/DIF F lymphocytes, absolute count 2.56 x10'3 /uL 1.07-3 .43 Not Available [facility] (Lab) [address] [place], [address], 04/08/2023 19:51:24 04/08/2004/08/2023 CBC/C OMPLE TE BLD COUNT W/DIF F monocytes, absolute count 0.72 x10'3 /uL 0.29-0 .99 Not Available [facility] (Lab) [address] [place], [address], 04/08/2023 19:51:24 04/08/2004/08/2023 CBC/C OMPLE TE BLD COUNT W/DIF F eosinophils, absolute count 0.20 x10'3 /uL 0.02-0 .53 Not Available [facility] (Lab) [address] [place], [address], 04/08/2023 19:51:24 04/08/20 23 04/08/2023 CBC/C OMPLE TE BLD COUNT W/DIF F basophils, absolute count 0.05 x10'3 /uL 0.01-0 .08 Not Available [facility] (Lab) [address] [place], [address], 04/08/2023 19:51:24 04/08/2004/08/2023 CBC/C OMPLE TE BLD COUNT W/DIF F immature granulocytes ,absolute 0.02 x10'3 /uL 0.00-0 .05 Not Available [facility] (Lab) [address] [place], [address], 04/08/2023 19:51:24 04/08/20 23 04/08/2023 CBC/C OMPLE TE BLD COUNT W/DIF F nucleated red blood cells 0.0 % -0 Not Available [facility] (Lab) [address] [place], [address], 04/08/2023 19:51:24 04/08/20 23 04/08/2023 CBC/C OMPLE TE BLD COUNT W/DIF F NRBC# 0.00 x10'3 /uL Not Available [facility] (Lab) [address] [place], [address], 04/08/2023 19:51:24 04/08/2004/08/2023 IRON/ TIBC PANEL total iron binding capacity 331 mcg/d L 265-47 5 Not Available [facility] (Lab) [address] [place], [address], 04/08/2023 20:08:51 04/08/2004/08/2023 IRON/ TIBC PANEL % transferrin saturation 23 % 20-55 Not Available [facility] (Lab) [address] [place], [address], 04/08/2023 20:08:51 04/08/20 23 04/08/2023 IRON/ TIBC PANEL unsaturated iron bind capacity 256 mcg/d L 126-38 2 Not Available [facility] (Lab) [address] [place], [address], 04/08/2023 20:08:51 04/08/20 23 04/08/2023 IRON/ TIBC PANEL iron 75 mcg/d L 42-175 Not Available [facility] (Lab) [address] [place], [address], 04/08/2023 20:08:51 04/08/20 23 04/08/2023 BASIC METAB OLIC PANEL sodium 135 mmol/ L 137-14 5 low Not Available [facility] (Lab) [address] [place], [address], 04/08/2023 20:06:41 04/08/20 23 04/08/2023 BASIC METAB OLIC PANEL potassium 4.7 mmol/ L 3.5-5. 1 Not Available [facility] (Lab) [address] [place], [address], 04/08/2023 20:06:41 04/08/20 23 04/08/2023 BASIC METAB OLIC PANEL chloride 99 mmol/ L 98-107 Not Available [facility] (Lab) [address] [place], [address], 04/08/2023 20:06:41 04/08/20 23 04/08/2023 BASIC METAB OLIC PANEL carbon dioxide 22 mmol/ L 22-30 Not Available [facility] (Lab) [address] [place], [address], 04/08/2023 20:06:41 04/08/20 23 04/08/2023 BASIC METAB OLIC PANEL anion gap 18.7 mmol/ L 14-22 Not Available [facility] (Lab) [address] [place], [address], 04/08/2023 20:06:41 04/08/20 23 04/08/2023 BASIC METAB OLIC PANEL glucose 95 mg/dL 70-99 Not Available [facility] (Lab) [address] [place], [address], 04/08/2023 20:06:41 04/08/20 23 04/08/2023 BASIC METAB OLIC PANEL BUN 19 mg/dL 8-19 Not Available [facility] (Lab) [address] [place], [address], 04/08/2023 20:06:41 04/08/20 23 04/08/2023 BASIC METAB OLIC PANEL creatinine 0.98 mg/dL 0.66-1 .25 Not Available [facility] (Lab) [address] [place], [address], 04/08/2023 20:06:41 04/08/20 23 04/08/2023 BASIC METAB OLIC PANEL GFR 55 Refer ence Range : [place] GFR Healt hy Adult : >60 mL/mi n/1.7 3 m2 Chron ic Kidne y Disea se: 15-60 mL/mi n/1.7 3 m2 Kidne y Failu re: <15/m L/min /1.73 m2 www.n iddk. nih.g ov The MDRD study equat ion has not been valid ated in child yara <18 years of age; pregn ant women ; the elder ly >85 years of age; or in some racia l or ethni c subgr oups, such as Hispa nics. Outsi de the valid ated aspen eters , estim ated GFR is less accur ate, requi ring clini raine judgm ent on a case- by-ca se basis . Clini raine inter preta tion for other races and ages must be made by the clini noreen. The MDRD study equat ion has not been valid ated for the evalu ation of serum creat inine relat ed to nutri katrina l statu s or medic ation usage . For perso ns <18 years of age, a pedia tric GFR calcu lator is avail able on the F websi te: https ://laura w.latoya fredrick.o rg/pr ofess ional s/kdo qi/gf r_cal culat or Not Available [facility] (Lab) [address] [place], [address], 04/08/2023 20:06:41 04/08/2004/08/2023 BASIC METAB OLIC PANEL calcium 9.7 mg/dL 8.4-10 .2 Not Available [facility] (Lab) [address] [place], [address], 04/08/2023 20:06:41 04/08/20 23 04/08/2023 VITAM IN D 25-HY DROXY vd25oh 63.0 NG/mL 30-100 Vitam in D Statu s: Defic ient: <20 ng/mL Insuf ficie nt: 20-29 ng/mL Suffi cient : 30-10 0 ng/mL Not Available [facility] (Lab) [address] [place], [address], 04/08/2023 20:47:50 04/08/2004/08/2023 T4 FREE free T4 1.70 NG/dL 0.78-2 .19 Not Available [facility] (Lab) [address] [place], [address], 04/08/2023 20:48:46 04/08/2004/08/2023 TSH thyroid-stim ulating hormone 0.036 uIU/m L 0.465- 4.680 low Not Available [facility] (Lab) [address] [place], [address], 04/08/2023 20:49:11 04/08/20 23 04/08/2023 DARIUS TIN ferritin 64 NG/mL 11.1-2 64 Not Available [facility] (Lab) [address] [place], [address], 04/08/2023 20:49:36 04/08/2004/08/2023 VITAM IN B12 (DANIEL LAVONNE ) vb12 >1000 pg/mL 239-93 1 high Not Available [facility] (Lab) [address] [place], [address], 04/08/2023 21:11:10 04/08/20 23 04/08/2023 FOLAT E, SERUM /PLAS MA folate 6.65 NG/mL 2.76-2 0.0 Not Available [facility] (Lab) [address] [place], [address], 04/08/2023 21:11:17 06/25/20 23 06/25/2023 CBC/C OMPLE TE BLD COUNT W/DIF F white blood cells 6.5 x10'3 /uL 4.2-10 .8 Not Available [facility] (Lab) [address] [place], [address], 06/25/2023 20:14:01 06/25/20 23 06/25/2023 CBC/C OMPLE TE BLD COUNT W/DIF F red blood cells 3.94 x10'6 /uL 3.80-5 .20 Not Available [facility] (Lab) [address] [place], [address], 06/25/2023 20:14:01 06/25/20 23 06/25/2023 CBC/C OMPLE TE BLD COUNT W/DIF F hemoglobin 10.5 g/dL 12.0-1 5.6 low Not Available [facility] (Lab) [address] [place], [address], 06/25/2023 20:14:01 06/25/20 23 06/25/2023 CBC/C OMPLE TE BLD COUNT W/DIF F hematocrit 34.7 % 35.7-4 5.7 low Not Available [facility] (Lab) [address] [place], [address], 06/25/2023 20:14:01 06/25/20 23 06/25/2023 CBC/C OMPLE TE BLD COUNT W/DIF F mean red cell volume 88.1 fL 82.0-9 9.0 Not Available [facility] (Lab) [address] [place], [address], 06/25/2023 20:14:01 06/25/2006/25/2023 CBC/C OMPLE TE BLD COUNT W/DIF F mean red cell hemoglobin 26.6 pg 27.0-3 3.0 low Not Available [facility] (Lab) [address] [place], [address], 06/25/2023 20:14:01 06/25/2006/25/2023 CBC/C OMPLE TE BLD COUNT W/DIF F mean RBC HGB concentratio n 30.3 g/dL 31.0-3 6.0 low Not Available [facility] (Lab) [address] [place], [address], 06/25/2023 20:14:01 06/25/2006/25/2023 CBC/C OMPLE TE BLD COUNT W/DIF F red cell distribution width 14.4 % 11.8-1 5.5 Not Available [facility] (Lab) [address] [place], [address], 06/25/2023 20:14:01 06/25/2006/25/2023 CBC/C OMPLE TE BLD COUNT W/DIF F platelets 403 x10'3 /uL 150-40 0 high Not Available [facility] (Lab) [address] [place], [address], 06/25/2023 20:14:01 06/25/20 23 06/25/2023 CBC/C OMPLE TE BLD COUNT W/DIF F mean platelet volume 10.2 fL 9.0-12 .4 Not Available [facility] (Lab) [address] [place], [address], 06/25/2023 20:14:01 06/25/2006/25/2023 CBC/C OMPLE TE BLD COUNT W/DIF F neutrophils 48.5 % 39.0-7 2.0 Not Available [facility] (Lab) [address] [place], [address], 06/25/2023 20:14:01 06/25/2006/25/2023 CBC/C OMPLE TE BLD COUNT W/DIF F lymphocytes 40.9 % 16.0-4 7.0 Not Available [facility] (Lab) [address] [place], [address], 06/25/2023 20:14:01 06/25/2006/25/2023 CBC/C OMPLE TE BLD COUNT W/DIF F monocytes 7.5 % 5.0-12 .0 Not Available [facility] (Lab) [address] [place], [address], 06/25/2023 20:14:01 06/25/2006/25/2023 CBC/C OMPLE TE BLD COUNT W/DIF F eosinophils 2.2 % 1.0-7. 0 Not Available [facility] (Lab) [address] [place], [address], 06/25/2023 20:14:01 06/25/2006/25/2023 CBC/C OMPLE TE BLD COUNT W/DIF F basophils 0.6 % 0.0-2. 0 Not Available [facility] (Lab) [address] [place], [address], 06/25/2023 20:14:01 06/25/2006/25/2023 CBC/C OMPLE TE BLD COUNT W/DIF F immature granulocytes 0.3 % 0.00-0 .50 Not Available [facility] (Lab) [address] [place], [address], 06/25/2023 20:14:01 06/25/2006/25/2023 CBC/C OMPLE TE BLD COUNT W/DIF F neutrophils, absolute count 3.15 x10'3 /uL 1.5-8. 0 Not Available [facility] (Lab) [address] [place], [address], 06/25/2023 20:14:01 06/25/2006/25/2023 CBC/C OMPLE TE BLD COUNT W/DIF F lymphocytes, absolute count 2.66 x10'3 /uL 1.07-3 .43 Not Available [facility] (Lab) [address] [place], [address], 06/25/2023 20:14:01 06/25/2006/25/2023 CBC/C OMPLE TE BLD COUNT W/DIF F monocytes, absolute count 0.49 x10'3 /uL 0.29-0 .99 Not Available [facility] (Lab) [address] [place], [address], 06/25/2023 20:14:01 06/25/2006/25/2023 CBC/C OMPLE TE BLD COUNT W/DIF F eosinophils, absolute count 0.14 x10'3 /uL 0.02-0 .53 Not Available [facility] (Lab) [address] [place], [address], 06/25/2023 20:14:01 06/25/20 23 06/25/2023 CBC/C OMPLE TE BLD COUNT W/DIF F basophils, absolute count 0.04 x10'3 /uL 0.01-0 .08 Not Available [facility] (Lab) [address] [place], [address], 06/25/2023 20:14:01 06/25/2006/25/2023 CBC/C OMPLE TE BLD COUNT W/DIF F immature granulocytes ,absolute 0.02 x10'3 /uL 0.00-0 .05 Not Available [facility] (Lab) [address] [place], [address], 06/25/2023 20:14:01 06/25/20 23 06/25/2023 CBC/C OMPLE TE BLD COUNT W/DIF F nucleated red blood cells 0.0 % -0 Not Available [facility] (Lab) [address] [place], [address], 06/25/2023 20:14:01 06/25/20 23 06/25/2023 CBC/C OMPLE TE BLD COUNT W/DIF F NRBC# 0.00 x10'3 /uL Not Available [facility] (Lab) [address] [place], [address], 06/25/2023 20:14:01 06/25/2006/25/2023 IRON/ TIBC PANEL total iron binding capacity 337 mcg/d L 265-47 5 Not Available [facility] (Lab) [address] [place], [address], 06/25/2023 21:02:12 06/25/2006/25/2023 IRON/ TIBC PANEL % transferrin saturation 25 % 20-55 Not Available [facility] (Lab) [address] [place], [address], 06/25/2023 21:02:12 06/25/2006/25/2023 IRON/ TIBC PANEL unsaturated iron bind capacity 254 mcg/d L 126-38 2 Not Available [facility] (Lab) [address] [place], [address], 06/25/2023 21:02:12 06/25/2006/25/2023 IRON/ TIBC PANEL iron 83 mcg/d L 42-175 Not Available [facility] (Lab) [address] [place], [address], 06/25/2023 21:02:12 06/25/2006/25/2023 BASIC METAB OLIC PANEL sodium 136 mmol/ L 137-14 5 low Not Available [facility] (Lab) [address] [place], [address], 06/25/2023 21:01:49 06/25/2006/25/2023 BASIC METAB OLIC PANEL potassium 4.3 mmol/ L 3.5-5. 1 Not Available [facility] (Lab) [address] [place], [address], 06/25/2023 21:01:49 06/25/2006/25/2023 BASIC METAB OLIC PANEL chloride 103 mmol/ L 98-107 Not Available [facility] (Lab) [address] [place], [address], 06/25/2023 21:01:49 06/25/2006/25/2023 BASIC METAB OLIC PANEL carbon dioxide 23 mmol/ L 22-30 Not Available [facility] (Lab) [address] [place], [address], 06/25/2023 21:01:49 06/25/2006/25/2023 BASIC METAB OLIC PANEL anion gap 14.3 mmol/ L 14-22 Not Available [facility] (Lab) [address] [place], [address], 06/25/2023 21:01:49 06/25/2006/25/2023 BASIC METAB OLIC PANEL glucose 90 mg/dL 70-99 Not Available [facility] (Lab) [address] [place], [address], 06/25/2023 21:01:49 06/25/20 23 06/25/2023 BASIC METAB OLIC PANEL BUN 19 mg/dL 8-19 Not Available [facility] (Lab) [address] [place], [address], 06/25/2023 21:01:49 06/25/20 23 06/25/2023 BASIC METAB OLIC PANEL creatinine 0.98 mg/dL 0.66-1 .25 Not Available [facility] (Lab) [address] [place], [address], 06/25/2023 21:01:49 06/25/20 23 06/25/2023 BASIC METAB OLIC PANEL GFR 55 Refer ence Range : [place] GFR Healt hy Adult : >60 mL/mi n/1.7 3 m2 Chron ic Kidne y Disea se: 15-60 mL/mi n/1.7 3 m2 Kidne y Failu re: <15/m L/min /1.73 m2 www.n iddk. nih.g ov The MDRD study equat ion has not been valid ated in child yara <18 years of age; pregn ant women ; the elder ly >85 years of age; or in some racia l or ethni c subgr oups, such as [facility] nics. Outsi de the valid ated aspen eters , estim ated GFR is less accur ate, requi ring clini raine judgm ent on a case- by-ca se basis . Clini raine inter preta tion for other races and ages must be made by the clini noreen. The MDRD study equat ion has not been valid ated for the evalu ation of serum creat inine relat ed to nutri katrina l statu s or medic ation usage . For perso ns <18 years of age, a pedia tric GFR calcu lator is avail able on the F websi te: https ://laura haywood.latoya alcala.o rg/pr ofess ional s/kdo qi/gf r_cal culat or Not Available [facility] (Lab) [address] [place], [address], 06/25/2023 21:01:49 06/25/2006/25/2023 BASIC METAB OLIC PANEL calcium 9.7 mg/dL 8.4-10 .2 Not Available [facility] (Lab) [address] [place], [address], 06/25/2023 21:01:49 06/25/2006/25/2023 TSH thyroid-stim ulating hormone 0.913 uIU/m L 0.465- 4.680 Not Available [facility] (Lab) [address] [place], [address], 06/25/2023 21:34:51 06/25/2006/25/2023 T4 FREE free T4 1.09 NG/dL 0.78-2 .19 Not Available [facility] (Lab) [address] [place], [address], 06/25/2023 21:35:41 06/25/2006/25/2023 DARIUS TIN ferritin 39 NG/mL 11.1-2 64 Not Available [facility] (Lab) [address] [place], [address], 06/25/2023 22:12:51 06/25/20 23 06/25/2023 VITAM IN D 25-HY DROXY vd25oh 59.1 NG/mL 30-100 Vitam in D Statu s: Defic ient: <20 ng/mL Insuf ficie nt: 20-29 ng/mL Suffi cient : 30-10 0 ng/mL Not Available [facility] (Lab) [address] [place], [address], 06/25/2023 22:37:06 06/25/2006/25/2023 VITAM IN B12 (DANIEL LAVONNE ) vb12 >1000 pg/mL 239-93 1 high Not Available [facility] (Lab) [address] [place], [address], 06/25/2023 22:59:44 06/25/20 23 06/25/2023 FOLAT E, SERUM /PLAS MA folate 4.63 NG/mL 2.76-2 0.0 Not Available [facility] (Lab) [address] [place], [address], 06/25/2023 22:59:48 11/18/19 24 11/18/2023 IRON/ TIBC PANEL total iron binding capacity 297 mcg/d L 265-47 5 Not Available [facility] (Lab) [address] [place], [address], 11/18/2023 20:09:44 11/18/19 24 11/18/2023 IRON/ TIBC PANEL % transferrin saturation 30 % 20-55 Not Available [facility] (Lab) [address] [place], [address], 11/18/2023 20:09:44 11/18/19 24 11/18/2023 IRON/ TIBC PANEL unsaturated iron bind capacity 208 mcg/d L 126-38 2 Not Available [facility] (Lab) [address] [place], [address], 11/18/2023 20:09:44 11/18/19 24 11/18/2023 IRON/ TIBC PANEL iron 89 mcg/d L 42-175 Not Available [facility] (Lab) [address] [place], [address], 11/18/2023 20:09:44 11/18/19 24 11/18/2023 CBC/C OMPLE TE BLD COUNT W/DIF F white blood cells 8.4 x10'3 /uL 4.2-10 .8 Not Available [facility] (Lab) [address] [place], [address], 11/18/2023 20:20:14 11/18/19 24 11/18/2023 CBC/C OMPLE TE BLD COUNT W/DIF F red blood cells 3.94 x10'6 /uL 3.80-5 .20 Not Available [facility] (Lab) [address] [place], [address], 11/18/2023 20:20:14 11/18/19 24 11/18/2023 CBC/C OMPLE TE BLD COUNT W/DIF F hemoglobin 10.4 g/dL 12.0-1 5.6 low Not Available [facility] (Lab) [address] [place], [address], 11/18/2023 20:20:14 11/18/19 24 11/18/2023 CBC/C OMPLE TE BLD COUNT W/DIF F hematocrit 33.8 % 35.7-4 5.7 low Not Available [facility] (Lab) [address] [place], [address], 11/18/2023 20:20:14 11/18/19 24 11/18/2023 CBC/C OMPLE TE BLD COUNT W/DIF F mean red cell volume 85.8 fL 82.0-9 9.0 Not Available [facility] (Lab) [address] [place], [address], 11/18/2023 20:20:14 11/18/19 24 11/18/2023 CBC/C OMPLE TE BLD COUNT W/DIF F mean red cell hemoglobin 26.4 pg 27.0-3 3.0 low Not Available [facility] (Lab) [address] [place], [address], 11/18/2023 20:20:14 11/18/19 24 11/18/2023 CBC/C OMPLE TE BLD COUNT W/DIF F mean RBC HGB concentratio n 30.8 g/dL 31.0-3 6.0 low Not Available [facility] (Lab) [address] [place], [address], 11/18/2023 20:20:14 11/18/19 24 11/18/2023 CBC/C OMPLE TE BLD COUNT W/DIF F red cell distribution width 14.7 % 11.8-1 5.5 Not Available [facility] (Lab) [address] [place], [address], 11/18/2023 20:20:14 11/18/19 24 11/18/2023 CBC/C OMPLE TE BLD COUNT W/DIF F platelets 396 x10'3 /uL 150-40 0 Not Available [facility] (Lab) [address] [place], [address], 11/18/2023 20:20:14 11/18/19 24 11/18/2023 CBC/C OMPLE TE BLD COUNT W/DIF F mean platelet volume 9.7 fL 9.0-12 .4 Not Available [facility] (Lab) [address] [place], [address], 11/18/2023 20:20:14 11/18/19 24 11/18/2023 CBC/C OMPLE TE BLD COUNT W/DIF F neutrophils 62.8 % 39.0-7 2.0 Not Available [facility] (Lab) [address] [place], [address], 11/18/2023 20:20:14 11/18/19 24 11/18/2023 CBC/C OMPLE TE BLD COUNT W/DIF F lymphocytes 27.4 % 16.0-4 7.0 Not Available [facility] (Lab) [address] [place], [address], 11/18/2023 20:20:14 11/18/19 24 11/18/2023 CBC/C OMPLE TE BLD COUNT W/DIF F monocytes 7.8 % 5.0-12 .0 Not Available [facility] (Lab) [address] [place], [address], 11/18/2023 20:20:14 11/18/19 24 11/18/2023 CBC/C OMPLE TE BLD COUNT W/DIF F eosinophils 1.1 % 1.0-7. 0 Not Available [facility] (Lab) [address] [place], [address], 11/18/2023 20:20:14 11/18/19 24 11/18/2023 CBC/C OMPLE TE BLD COUNT W/DIF F basophils 0.5 % 0.0-2. 0 Not Available [facility] (Lab) [address] [place], [address], 11/18/2023 20:20:14 11/18/19 24 11/18/2023 CBC/C OMPLE TE BLD COUNT W/DIF F immature granulocytes 0.4 % 0.00-0 .50 Not Available [facility] (Lab) [address] [place], [address], 11/18/2023 20:20:14 11/18/19 24 11/18/2023 CBC/C OMPLE TE BLD COUNT W/DIF F neutrophils, absolute count 5.27 x10'3 /uL 1.5-8. 0 Not Available [facility] (Lab) [address] [place], [address], 11/18/2023 20:20:14 11/18/19 24 11/18/2023 CBC/C OMPLE TE BLD COUNT W/DIF F lymphocytes, absolute count 2.29 x10'3 /uL 1.07-3 .43 Not Available [facility] (Lab) [address] [place], [address], 11/18/2023 20:20:14 11/18/19 24 11/18/2023 CBC/C OMPLE TE BLD COUNT W/DIF F monocytes, absolute count 0.65 x10'3 /uL 0.29-0 .99 Not Available [facility] (Lab) [address] [place], [address], 11/18/2023 20:20:14 11/18/19 24 11/18/2023 CBC/C OMPLE TE BLD COUNT W/DIF F eosinophils, absolute count 0.09 x10'3 /uL 0.02-0 .53 Not Available [facility] (Lab) [address] [place], [address], 11/18/2023 20:20:14 11/18/19 24 11/18/2023 CBC/C OMPLE TE BLD COUNT W/DIF F basophils, absolute count 0.04 x10'3 /uL 0.01-0 .08 Not Available [facility] (Lab) [address] [place], [address], 11/18/2023 20:20:14 11/18/19 24 11/18/2023 CBC/C OMPLE TE BLD COUNT W/DIF F immature granulocytes ,absolute 0.03 x10'3 /uL 0.00-0 .05 Not Available [facility] (Lab) [address] [place], [address], 11/18/2023 20:20:14 11/18/19 24 11/18/2023 CBC/C OMPLE TE BLD COUNT W/DIF F nucleated red blood cells 0.0 % -0 Not Available [facility] (Lab) [address] [place], [address], 11/18/2023 20:20:14 11/18/19 24 11/18/2023 CBC/C OMPLE TE BLD COUNT W/DIF F NRBC# 0.00 x10'3 /uL Not Available [facility] (Lab) [address] [place], [address], 11/18/2023 20:20:14 11/18/19 24 11/18/2023 VITAM IN D 25-HY DROXY vd25oh 53.8 NG/mL 30-100 Vitam in D Statu s: Defic ient: <20 ng/mL Insuf ficie nt: 20-29 ng/mL Suffi cient : 30-10 0 ng/mL Not Available [facility] (Lab) [address] [place], [address], 11/18/2023 20:23:38 11/18/19 24 11/18/2023 T4 FREE free T4 0.89 NG/dL 0.78-2 .19 Not Available [facility] (Lab) [address] [place], [address], 11/18/2023 20:24:43 11/18/19 24 11/18/2023 TSH thyroid-stim ulating hormone 4.630 uIU/m L 0.465- 4.680 Not Available [facility] (Lab) [address] [place], [address], 11/18/2023 20:49:52 11/18/19 24 11/18/2023 DARIUS TIN ferritin 32 NG/mL 11.1-2 64 Not Available [facility] (Lab) [address] [place], [address], 11/18/2023 20:50:19 11/18/19 24 11/18/2023 VITAM IN B12 (DANIEL LAVONNE ) vb12 834 pg/mL 239-93 1 Not Available [facility] (Lab) [address] [place], [address], 11/18/2023 21:16:08 11/18/19 24 11/18/2023 FOLAT E, SERUM /PLAS MA folate 7.10 NG/mL 2.76-2 0.0 Not Available [facility] (Lab) [address] [place], [address], 11/18/2023 21:16:10 Result Notes None recorded. Problems Name Problem SNOMED Code Status Onset Date Resolution Date Notes Provider Name and Address Organization Details Recorded Time Irritable bowel syndrome 89785392 Active 2020 Not Available [facility] 3 23:11:42 Insomnia 809140707 Active 2020 Not Available [facility] 3 23:11:42 Scoliosis deformity of spine 231154885 Active 2020 Not Available [facility] 3 23:11:42 Iron deficiency 91956341 Active 2020 Not Available [facility] 3 23:11:42 Osteoarthr itis 191731759 Active 2020 Not Available [facility] 3 23:11:42 Hypothyroi dism 34781558 Active 2020 Not Available [facility] 3 23:11:42 Temporoman dibular joint disorder 57516605 Active 2020 [facility] Available [facility] 3 23:11:43 Gastritis 7985320 Active 2020 Not Available [facility] 3 23:11:43 Chronic fatigue syndrome 55205772 Active 2020 Not Available [facility] 3 23:11:43 Degenerati on of interverte bral disc 95520172 Active 2020 Not Available [facility] 3 23:11:43 Thyroiditi s 71401998 Completed 202004/16/2021 Not Available [facility] 3 23:11:43 Primary fibromyalg ia syndrome 88818611 Active 2020 Not Available [facility] 3 23:11:43 Iron deficiency anemia 75093567 Active 2022 Debbi Sanabria MD [address], [facility] [address], [place], [address] , [employer] [facility] [employer] [facility] 3 08:42:25 Vitamin D deficiency 84697101 Active 2022 Debbi Sanabria MD [address], [facility] [address], [place], [address] , [facility] [employer] [facility] [employer] [facility] 3 08:43:48 Cobalamin deficiency 509693558 Active 2022 Debbi Sanabria MD [address], [facility] [address], [place], [address] , [employer] 3 08:43:54 Hyponatrem ia 95897179 Active 2022 Debbi Sanabria MD [address], [facility] [address], [place], [address] , [employer] 3 07:50:06 Pain of multiple joints 97299046 Active 2022 Debbi Sanabria MD [address], [facility] [address], [place], [address] , [employer] 3 10:16:19 Intoleranc e to lactose 623671906 Active 2023 Debbi Sanabria MD [address], [place] [address], [place], [address] , [employer] 4 10:07:48 Essential hypertensi on 01132322 Active 2023 YADI Lee [address] [facility], [place] [address], [place], [address] , [employer] 4 14:28:26 Problem Notes None recorded. Procedures Surgical History Date Name Laterality Status Provider Name and Address Organization Details Recorded Time 05/20/20 Medicare Wellness CPT Code, subsequent completed Claus Chang RN [employer] 05/20/2023 10:20:02 09/14/19 11 laparoscopic cholecystectomy completed Not Available [facility] 11/12/2022 23:10:48 09/14/18 91 Removal of ovarian cyst(s) completed Not Available [facility] 11/12/2022 23:10:48 01/12/19 77 ligation of bilateral fallopian tubes completed Not Available [facility] 11/12/2022 23:10:48 09/14/18 56 Appendectomy completed Not Available [facility] 11/12/2022 23:10:48 09/14/18 50 Removal of tonsils completed Not Available [facility] [employer] 11/12/2022 23:10:48 excision of peripheral neuroma completed Not Available [facility] 11/12/2022 23:10:48 Imaging Results None recorded. Procedure Notes None recorded. Medical Equipment None Reported. Allergies Allergen ID Allergen Name Allergen Category Reaction Reaction Severity Criticality Documentation Date Start Date Code Code System Note Provider Name and Address Organization Details Recorded Time 86950 tetracycl ine medicatio n hives Not available Not available 11/12/2022 48445 RxNorm Not Available [facility] 3 23:12:52 83831 Substance with sulfonami de structure and antibacte rial mechanism of action (substanc e) medicatio n hives Not available Not available 11/12/2022 30256 8003 SNOMED Not Available [facility] 3 23:12:52 54300 Macrodant in medicatio n hives Not available Not available 11/12/2022 4 RxNorm Not Available [facility] 3 23:12:52 74324 Product containin g estrogen receptor agonist (product) medicatio n rash Not available Not available 11/12/2022 34144 003 SNOMED Not Available [facility] 3 23:12:52 32600 tetracain e medicatio n Not available Not available Not available 11/12/2022 73272 RxNorm Not Available [facility] 3 23:12:52 Medications Name Sig Start Date Stop Date Status Note LastModified by Organization Details LastModified Time trazodone 50 mg tablet TAKE 1 TABLET BY MOUTH ONCE DAILY AT BEDTIME 07/31 completed Not Available Not Available Not Available Iron (ferrous sulfate) 325 mg (65 mg iron) tablet Take 1 tablet every day by oral route. 05/27 completed Not Available Not Available Not Available tramadol 50 mg tablet TAKE 1 TABLET BY MOUTH EVERY 6 HOURS NEEDED FOR PAIN 04/16 completed Not Available Not Available Not Available levothyro xine 25 mcg tablet TAKE 1 TABLET BY MOUTH ONCE DAILY 11/17 completed Not Available Not Available Not Available famotidin e 20 mg tablet TAKE 1 TABLET BY MOUTH ONCE DAILY 10/29 completed stomach pain Not Available Not Available Not Available trazodone 100 mg tablet 1-2 po qhs prn insomnia 2023 active Not Available Not Available Not Avai lable diazepam 2 mg tablet 1/2 to 1 po qhs prn insomnia active Not Available Not Available No t Available levothyro xine 50 mcg tablet TAKE 1 TABLET BY MOUTH ONCE DAILY 05/20 completed Not Available Not Available Not Available pantopraz ole 40 mg tablet,de layed release TAKE 1 TABLET BY MOUTH ONCE DAILY IN THE MORNING 04/16 completed Not Available Not Available Not Available nortripty line 10 mg capsule TAKE 1 CAPSULE BY MOUTH TWICE DAILY 04/16 completed Not Available Not Available Not Available diazepam 5 mg tablet TAKE 1 & 1/2 (ONE & ONE-HALF ) TABLETS BY MOUTH EVERY DAY AT BEDTIME active Not Available Not Available No t Available ferrous gluconate 324 mg (38 mg iron) tablet Take 1 tablet every day by oral route. 11/17 completed Not Available Not Available Not Available ferrous gluconate 324 mg (37.5 mg iron) tablet Take 1 tablet every day by oral route. 10/29 completed Not Available Not Available Not Available Vitals Date Recorded Body height Body mass index (BMI) Body weight Body temperature Heart rate Oxygen saturation Oxygen saturation in Arterial blood by Pulse oximetry Systolic blood pressure Diastolic blood pressure Provider Name and Address Organization Details Last Updated DateTime 3 157.48 cm 23 kg/m2 68586.6 4 g 98 [degF] 114 /min 98 % 98 % 140 mm[Hg] 60 mm[Hg] Gale Dominguez RN [facility] [employer] 3 12:42:49 Date Recorded Body height Body mass index (BMI) Body weight Body temperature Heart rate Oxygen saturation Oxygen saturation in Arterial blood by Pulse oximetry Systolic blood pressure Diastolic blood pressure Provider Name and Address Organization Details Last Updated DateTime 3 157.48 cm 22.9 kg/m2 63331.0 5 g 97.7 [degF] 108 /min 96 % 96 % 132 mm[Hg] 62 mm[Hg] Claus Chang RN [facility] [employer] 3 10:23:09 Date Recorded Body height Provider Name an d Address Organization Details Last Updated DateTime 06/25/2023 157.48 cm Rosa Maria Duron LPN [facility] [employer] 06/25/2023 10:35:24 Date Recorded Body height Body mass index (BMI) Body weight Body temperature Heart rate Oxygen saturation Oxygen saturation in Arterial blood by Pulse oximetry Provider Name and Address Organization Details Last Updated DateTime 4 157.48 cm 24 kg/m2 13420.6 g 96.5 [degF] 101 /min 99 % 99 % Claus Chang RN [facility] [employer] 4 09:57:10 Date Recorded Systolic blood pressure Diastolic blood pressure Provider Name and Address Organization Details Last Updated DateTime 11/18/2023 132 mm[Hg] 78 mm[Hg] Debbi Sanabria MD [address] [facility], [facility] [address], [place], [address], [place] [employer] [facility] [employer] 11/18/2023 10:12:12 Date Recorded Body height Body mass index (BMI) Body weight Body temperature Heart rate Oxygen saturation Oxygen saturation in Arterial blood by Pulse oximetry Systolic blood pressure Diastolic blood pressure Provider Name and Address Organization Details Last Updated DateTime 4 157.48 cm 24.3 kg/m2 61306.7 9 g 98 [degF] 93 /min 98 % 98 % 164 mm[Hg] 70 mm[Hg] Bárbara Grove RN [facility] [employer] 4 12:08:23 Social History Question Answer Notes LastModified by Organizat ion Details LastModified Time Tobacco Smoking Status Former Smoker Not Available [facility] 11/12/2022 23:10:29 What Is Your Level Of Alcohol Consumption? None MIGRATION.26281 [id number] Information not available 11/12/2022 Do You Wear A Helmet When Biking? Yes MIGRATION.91397 26408 Information not available 11/12/2022 Are You Blind Or Do You Have Difficulty Seeing? No MIGRATION.02995 70306 Information not available 11/12/2022 What Is Your Level Of Caffeine Consumption? Moderate MIGRATION.86746 28234 Information not available 11/12/2022 In The 14 Days Before Symptom Onset, Have You Had Close Contact With A Laboratory-confi rmed COVID-19 While That Case Was Ill? No MIGRATION.64130 68336 Information not available 11/12/2022 In The 14 Days Before Symptom Onset, Have You Had Close Contact With A Person Who Is Under Investigation For COVID-19 While That Person Was Ill? No MIGRATION.04373 87618 Information not available 11/12/2022 Are You Deaf Or Do You Have Serious Difficulty Hearing? No MIGRATION.61004 92254 Information not available 11/12/2022 What Type Of Diet Are You Following? REGULAR MIGRATION.86416 10008 Information not available 11/12/2022 What Is The Highest Grade Or Level Of School You Have Completed Or The Highest Degree You Have Received? [id number] MIGRATION.73990 17841 Information not available 11/12/2022 Have There Been Any Changes To Your Family Or Social Situation? No MIGRATION.39096 67580 Information not available 11/12/2022 When Did You Quit Smoking? 18+yearssincelastci garette MIGRATION.22564 95779 Information not available 11/12/2022 Are There Any Guns Present In Your Home? No MIGRATION.54423 57007 Information not available 11/12/2022 Do You Use Insect Repellent Routinely? No MIGRATION.55201 84616 Information not available 11/12/2022 Where Do You Live? [place]House MIGRATION.83726 46428 Information not available 11/12/2022 What Was The Date Of Your Most Recent Tobacco Screening? 05/20/2023 Information not available 05/20/2023 What Is Your Current Pack Years? 30ormorepackyears MIGRATION.71187 07316 Information not available 11/12/2022 Do You Have Any Pets? No MIGRATION.45722 19253 Information not available 11/12/2022 What Is Your Relationship Status? MIGRATION.25498 98004 Information not available 11/12/2022 Do You Use Your Seat Belt Or Car Seat Routinely? Yes MIGRATION.84453 23138 Information not available 11/12/2022 Do You Have Smoke And Carbon Monoxide Detectors In Your Home? Yes MIGRATION.87229 13480 Information not available 11/12/2022 At What Age Did You Start Smoking Tobacco? 19 MIGRATION.83074 91154 Information not available 11/12/2022 Are You Passively Exposed To Smoke? No MIGRATION.25000 70154 Information not available 11/12/2022 Are There Any Smokers In Your House? No MIGRATION.72640 35326 Information not available 11/12/2022 Do You Participate In Social Media? No MIGRATION.24972 92085 Information not available 11/12/2022 Do You Feel Stressed (tense, Restless, Nervous, Or Anxious, Or Unable To Sleep At Night)? [id number] MIGRATION.10570 41016 Information not available 11/12/2022 Do You Use Any Illicit Or Recreational Drugs? No MIGRATION.04589 71562 Information not available 11/12/2022 Do You Use Sunscreen Routinely? No MIGRATION.66027 21655 Information not available 11/12/2022 Have You Recently Traveled Abroad? No MIGRATION.87737 95846 Information not available 11/12/2022 Are You Currently In School? No MIGRATION.66451 42359 Information not available 11/12/2022 Do You Have Any Dietary Restrictions? No MIGRATION.82298 07967 Information not available 11/12/2022 Do You Or Have You Ever Used Any Other Forms Of Tobacco Or Nicotine? No MIGRATION.61785 41184 Information not available 11/12/2022 Sex: Unknown Functional Status Question Answer Note LastModified by Organizat [employer] Details LastModified Time Do you have difficulty walking or climbing stairs? No MIGRATION.[id number] 026 Information not available 11/12/2022 Do you have transportation difficulties? No MIGRATION.9147784 026 Information not available 11/12/2022 Are you able to walk? YESWOREST MIGRATION.5286670 026 Information not available 11/12/2022 Do you have difficulty doing errands alone? No MIGRATION.8233625 026 Information not available 11/12/2022 Are you able to care for yourself? Yes MIGRATION.5375405 026 Information not available 11/12/2022 Do you have difficulty dressing or bathing? No MIGRATION.6651669 026 Information not available 11/12/2022 What is your exercise level? Occasional MIGRATION.2289610 026 Information not available 11/12/2022 Mental Status Question Answer Note LastModified by Organizat ion Details LastModified Time Do you have difficulty concentrating, remembering or making decisions? No MIGRATION.[id number] 6 Information not available 11/12/2022 Family History Relationship Description Onset Age of this Age Resolved Age Notes LastModified by Organization Details LastModified Time Maternal Grandmother Hypertensive disorder MIGRATION.876 [id number] Not available 11/12/2022 23:10:49 Mother Suicide frivastorres Not availa ble 05/24/2024 12:07:14 Mother Arthritis frivastorres Not avai lable 05/24/2024 12:07:14 Mother Osteoporosis frivastorres Not a vailable 05/24/2024 12:07:14 Father Malignant neoplasm of skin frivastorres Not available 06/2024 12:07:14 Father Heart valve disorder frivastorres Not available 06/2024 12:07:14 Brother Malignant neoplasm of lung frivastorres Not available 06/2024 12:07:14 Medical History Condition Response SLEEP APNEA N MRSA N ALLERGIES/HAYFEVER N LUNG DISEASE/DISORDER N HISTORY OF DRUG ABUSE N INSOMNIA N COPD N RADIATION / CHEMOTHERAPY N HIGH CHOLESTEROL / HYPERLIPIDEMIA N HYPERTHYROIDISM N BLOOD DISEASES N EAR OR HEARING PROBLEMS N HYPOTHYROIDISM Y SHINGLES N DEPRESSION (INCLUDING POST ) N HAVE YOU BEEN HOSPITALIZED OR SEEN IN [facility] ER IN THE PAST YEAR ? Y STROKE/TIA N ULCERS N OBESITY N ANEURYSM N HISTORY WITH COMPLICATIONS WITH ANESTHES IA ? Y NO SIGNIFICANT PAST MEDICAL HISTORY N USE OF BLOOD THINNERS N DIABETES, TYPE N PARATHYROID DISEASE N ENT N SEASONAL ALLERGIES N HEARTBURN / REFLUX Y HEPATITIS / LIVER DISEASE N SLEEP DISORDER N SEIZURES/EPILEPSY N HEADACHES/MIGRAINES Y CHF N PACEMAKER N DIZZINESS N HEART DISEASE/HEART PROBLEMS N AIDS/HIV N FRACTURES N HYPERTENSION N CANCER: SPECIFY Y TOURETTE'S N BLOOD TRANSFUSION Y ANESTHESIA COMPLICATIONS N ANEMIA/BLOOD DISORDER Y CHRONIC EAR INFECTIONS N TUBERCULOSIS N Gynecological History Statement/Question Response Current Control Method Menopause Date of Last Colonoscopy Most Recent Bone Density Obstetrics History GPAL:G 0 P 0 0 0 0 Immunizations Vaccine Type Date Status Note Provider Nam e and Address Organization Details Recorded Time Influenza, split virus, quadrivalent, preservative 1 completed Not Available [facility] 11/12/2022 23:12:49 Pneumococcal Conjugate, unspecified formulation 5 completed Not Available [facility] 11/12/2022 23:12:49 Tdap 2 completed Not Available [facility] 11/12/2022 23:12:49 Influenza, high-dose, quadrivalent, PF 1 completed Not Available [facility] 11/12/2022 23:12:49 Past Encounters Encounter ID Performer Location Encounter Start Date Encounter Closed Date Diagnosis/Indication Diagnosis SNOMED-CT Code Diagnosis ICD10 Code Diagnosis Note [id number] [facility] [place] [address] [place] [address] 04/16/2021 00:00:00 04/16/2021 09:41:25 [id number] [facility] [place] [address] [place] [address] 05/07/2021 00:00:00 05/07/2021 11:26:28 [id number] [facility] [place] [address] [place] [address] 05/27/2021 00:00:00 05/27/2021 09:04:42 [id number] [facility] [place] [address] [place] [address] 07/03/2021 00:00:00 07/03/2021 10:01:05 [id number] [facility] [place] [address] [place] [address] 10/29/2021 00:00:00 10/29/2021 10:26:13 [id number] [facility] [place] [address] [place] [address] 01/28/2022 00:00:00 01/28/2022 09:49:27 [id number] [facility] [place] [address] [place] [address] 07/31/2022 00:00:00 07/31/2022 09:11:55 [id number] Debbi Sanabria MD [facility] [place] [address] [place] [address] 12/31/2022 08:22:52 12/31/2022 09:05:48 Hypothyroidism 19876326 E03.9 recheck labs, pt would like to avoid medication unless it is necessary if stable, will repeat labs in 6 months Iron defic iency anemia 35826508 D50.9 currently off iron for 2+ months due to GI s/e EGD/colono scopy done 12/2020 showed gastritis, hiatal hernia, stenosis repeat EGD done 05/10/21 showed healing gastritis recheck labs, plan repeat labs in 3-6 months pending results and f/u in office in 6 months Vitamin D deficiency 347 73626 E55.9 Cobalamin deficiency 190 272235 E53.8 Insomnia 268202252 G47.0 0 stable sleep hygeine continue diazepam 7.5 mg po qhs continue trazodone 100 mg po qhs prn [place] prescripti on monitoring website reviewed Pt understand s this medication has risk for abuse/depe ndence and agrees to take it only as prescribed and to guard from loss/theft pt understand s this can cause drowsiness , confusion, increased risk of falls Refill given today Long-term drug therapy 439072853 Z79.899 [id number] Debbi Sanabria MD [facility] [address] [place] [address] 01/20/2023 10:23:05 01/20/2023 10:31:13 [id number] Debbi Sanabria MD [facility] Primary Care [address] [place] [address] 04/08/2023 10:38:20 04/08/2023 12:21:34 [id number] Debbi Sanabria MD [facility] Primary Care [facility] [address] [address] [place] [address] 04/30/2023 12:33:49 04/30/2023 13:55:51 Hypothyroidism 89275703 E03.9 stay off sudafedres tart levothyrox ine 50 mcg in 2 weeksf/u on 04/30/23 Pain of mu ltiple joints 43637738 M25.50 would like to continue to observe for nowstay active, f/u on 04/30/23 [id number] Debbi Sanabria MD [facility] Primary Care [address] [place] [address] 05/20/2023 10:16:33 05/20/2023 11:50:20 Adult health examination [id number] Z00.00 Z13.1 Tdap 10/2021Flu vaccine this fallCovid booster this fallPneumo vax completeDi d not have chicken pox-no shingles vaccineChe ck labsColono scopy 12/2020 normal, no further neededMamm ogram declinedNo further paps neededDEXA recommende d, pt may be interested in future Screening for disorder 871078602 Z13.9 Cobalamin deficiency 190 049833 E53.8 check labs Hypothyroidism 63465258 E03.9 currently on levothyrox ine 25 mcg dailyreche ck labs in 5 weeks Iron defic iency anemia 66933487 D50.9 EGD/colono scopy done 12/2020 showed gastritis, hiatal hernia, stenosis repeat EGD done 05/10/21 showed healing gastritis numbers have been stable, recheck labs in 5 weeks Vitamin D deficiency 347 35366 E55.9 [id number] Debbi Sanabria MD [facility] Primary Care [facility] [address] [place] [address] 06/25/2023 10:24:01 06/25/2023 12:31:03 [id number] Debbi Sanabria MD [facility] Primary Care [facility] [address] [facility] [address] 11/18/2023 09:51:31 11/18/2023 10:26:10 Hypothyroidism 49111459 E03.9 currently on levothyrox ine 25 mcg dailyreche ck labs in 5 weeks 11/18/23: off levothyrox ineshe prefers to remain off if TSH under 10 Cobalamin deficiency 190 089823 E53.8 check labs Iron deficiency 45600776 E61.1 has been stable Vitamin D deficiency 347 61227 E55.9 Intoleranc e to lactose 634024222 E73.9 ok to use lactaid [id number] YADI Lee [facility] Primary Care [facility] [address] [facility] [address] 05/24/2024 12:07:07 05/24/2024 14:33:41 Insomnia 036306852 G47.00 no longer taking valium, has weaned herself off d/t not wanting to come in for drug tests and f/u Essential hypertension 26515121 I10 bp 164/70she believes bp is d/t anxiety, doesnt want to start a new med today Hypothyroidism 43593147 E03.9 stabledecl dorothy checking labs today Health Concerns Section Related Observation LastModified by Organization Detai ls LastModified Time None Recorded Concern Status LastModified by Organization Details LastModified Time None Recorded Advance Directives Directive None Recorded Payers Encounter Date Sequence Insurance Name Policy Number Policy Saldana Covered Member ID Saldana Member ID Guarantor Name 04/30/2023 1 [place] Katie Cancino [id number] Katie Cancino 04/30/2023 2 [employer] (MEDICARE SUPPLEMENT) Katie Cancino [id number] Katie Cancino 05/20/2023 1 [place] Cancino [id number] Katie Cancino 05/20/2023 2 [employer] (MEDICARE SUPPLEMENT) Katie Cancino [id number] Katie Cancino 06/25/2023 1 [place] Katie Cancino [id number] Katie Cancino 06/25/2023 2 [employer] (MEDICARE SUPPLEMENT) Katie Cancino [id number] Katie Cancino 11/18/2023 1 [place] Katie Cancino [id number] Katie Cancino 11/18/2023 2 [employer] (MEDICARE SUPPLEMENT) Katie Cancino [id number] Katie Cancino 05/24/2024 1 [place] Katie Cancino [id number] Katie Cancino 05/24/2024 2 [employer] (MEDICARE SUPPLEMENT) Katie Cancino [id number] Katie Cancino Notes Date Note Type Note Provider Name and Address Organization Details Recorded Time 04/30/2023 text/html B12 has always b een high, does not take any supplement for it Was feeling less depressed/anxious, felt she was coping well overall, but last week started sleeping poorly and had panic attacks, nightmares, racing heart. Stopped the thyroid medication on Thursday but has been taking sudafed burning pain in thighs, hips, pelvis pain, low back pain, feels body wide pain. Has h/o arthritis and disk issues. Worse over the past spring/summer. She noticed this summer when she walked she felt ok but she would have so much pain afterward she would have to stop walking for 2 weeks afterward which is unusual for her. Debbi Sanabria MD [address], [address], [place], [address], [place] 05/04/2023 10:16:57 05/20/2023 text/html Here for [facility] exam. She d/c her sudafed on 04/30/23 and restarted her thyroid about 25 mcg daily about a week ago. Blood pressure usually runs on the lower side, has been more 120s-130s/60s. Debbi Sanabria MD [address], [place], [address], [place] 05/20/2023 10:59:10 11/18/2023 text/html Here for [facility] exam. She d/c her sudafed on 04/30/23 and restarted her thyroid about 25 mcg daily about a week ago. Blood pressure usually runs on the lower side, has been more 120s-130s/60s. update 11/18/23: here to f/u on hypothyroidism. Overall feeling well. Stopped taking levothyroxine in last week of September because it was making her crazy . She has made some lifestyle changes-walking, working on negative thinking and feeling better. Would like to avoid levothyroxine/thyro id replacement if possible. wonders if she is lactose intolerant-had 3 bad bouts of diarrhea after having cheese sandwich. Debbi Sanabria MD [address], [place], [address], [place] 12/10/2023 16:09:51 05/24/2024 text/html pt is here for f/u Carlos A escobedo [employer] [address], [place], [address], [place] 05/24/2024 14:31:06 OBGyn Episode No OBEpisode recorded.
[2025-01-09 19:10] LABS: Alanine Aminotransferase 29 U/L (6-35); Albumin Level 4.4 g/dL (3.5-5.1); Alkaline Phosphatase 58 U/L (38-126); Anion Gap 10 mmol/L (4-12); Aspartate Amino Transferase 29 U/L (14-36); Bilirubin,Total 0.4 mg/dL (0.2-1.3); Blood Urea Nitrogen 15 mg/dL (7-17); Calcium 8.9 mg/dL (8.4-10.2); Carbon Dioxide 25 mmol/L (22-30); Chloride 99 mmol/L (98-107); Estimated Glomerular Filt Rate 49; Glucose 112 mg/dL (65-110); Potassium 4.2 mmol/L (3.4-5.0); Sodium 134 mmol/L (137-145)
[2025-01-09 19:18] LABS: Hematocrit 35.3 % (37.0-47.0); Hemoglobin 10.8 g/dL (12.0-15.0); Mean Corpuscular HGB Conc 30.6 g/dl (32-36); Mean Corpuscular Volume 84.9 fl (80-100); Platelet Count Result 427 k/mm3 (150-375); Red Blood Count 4.16 M/mm3 (4.2-5.4); Red Cell Distribution Width 14.5 % (11.5-14.5); White Blood Count 10.5 K/mm3 (4.5-10.0)
[2025-01-09 19:31] LABS: Vitamin D 25 Hydroxy 60.9 ng/mL
== END 2025-01-09 14:19 | disposition home or self-care (01) ==
LOC: ANHGOSHLAB 14:20
PROVIDERS: PCP Family Medicine; Visit Provider Family Medicine
DX: E03.9 Hypothyroidism, unspecified (principal); F41.9 Anxiety disorder, unspecified; F19.20 Other psychoactive substance dependence, uncomplicated; D50.0 Iron deficiency anemia secondary to blood loss (chronic); M79.7 Fibromyalgia; G25.81 Restless legs syndrome; G47.00 Insomnia, unspecified; Z79.899 Other long term (current) drug therapy
CPT/HCPCS: 36415; 80053; 82306; 82607; 84443; 85027

== ENCOUNTER 2025-03-23 13:38 | Outpatient (CLI) | payer MEDICARE, SELFPAY ==
--- NOTE | ~2025-03-23 | DEXA_ITS ---
Bone Density Report Name: DEAN BOLAND Age: 79 Sex: Female Ethnicity: White Date of : 1945 Indication: postmenopausal; screening for osteoporosis; height loss; cancer; Referring Provider: VIRIDIANA FRANKS Study: Bone densitometry was performed. Exam Date: March 23, 2025 Accession number: [id number] Bone Density: Region BMD T-score Z-score Classification AP Spine(L1-L4) 0.910 -1.2 1.3 Osteopenia Femoral Neck (Left) 0.567 -2.5 -0.3 Osteoporosis Total Hip (Left) 0.729 -1.7 0.2 Osteopenia Femoral Neck (Right) 0.664 -1.7 0.5 Osteopenia Total Hip (Right) 0.729 -1.7 0.2 Osteopenia Total Hip Mean 0.729 -1.7 0.2 Osteopenia World Health Organization criteria for BMD impression classify patients as: Normal (T-score at or above -1.0), Osteopenia (T-score between -1.0 and -2.5), or Osteoporosis (T-score at or below -2.5). 10-year Fracture Risk: FRAX not reported because: Some T-score for Spine Total or Hip Total or Femoral Neck at or below -2.5 Clinical Information Provided by Patient: Has used the following medications: Calcium Has the following medical conditions: Cancer, CERVICAL CA 1991 Patient maximum height was 63 Menopause Age: 57 Does not regularly consume dairy products Onset of menses at age 15 Number of children 0 Impression: The patient has osteoporosis, based on the Left Femoral Neck T-score. Discussion: INCREASED RISK OF FRACTURE. BONE DENSITY IS UNDESIRABLY LOW AT ONE OR MORE SKELETAL SITES, CONSISTENT WITH POSTMENOPAUSAL OSTEOPOROSIS. This patient's lowest T-score meets the World Health Organization's (WHO) criteria for osteoporosis at one or more sites (T-score -2.5 or below). In untreated patients, the risk of osteoporotic fracture increases approximately two-fold for each 1.0 SD decrease in T-score. Low bone density is not the only risk factor for fracture; also consider factors such as patient's age, frailty or poor health, risk of falling, risk of injury, previous osteoporotic fracture, family history of osteoporosis, cigarette smoking, low body weight, etc. Not everyone with low bone mineral density has osteoporosis; osteomalacia and other metabolic bone disorders should also be considered. Patients who have osteoporosis should be evaluated for specific diseases and conditions (secondary causes) that may cause or contribute to bone loss. The [place] [employer]ocrinologists (AACE) and National Osteoporosis Foundation (NOF) recommend pharmacologic intervention for all postmenopausal women whose T-score is in this range. The patient should follow a healthful lifestyle (good nutrition with adequate calcium and vitamin D, and appropriate weight-bearing exercise). Follow-Up: Consider a repeat BMD and Vertebral Fracture Assessment (VFA) exam in 2 years or sooner if medically necessary, to reassess this patient's status. Reported by: RUBI on 03/23/2025 2:01:00 PM. Reviewed, dictated and finalized at location A.
== END 2025-03-23 13:39 | disposition home or self-care (01) ==
LOC: MICIMG 13:39
PROVIDERS: PCP Family Medicine; Visit Provider Family Medicine
DX: M81.0 Age-related osteoporosis without current pathological fracture (principal); M85.89 Other specified disorders of bone density and structure, multiple sites; Z78.0 Asymptomatic menopausal state
CPT/HCPCS: 77080

== ENCOUNTER 2025-08-16 14:01 | Outpatient (CLI) | payer MEDICARE, SELFPAY ==
--- OUTSIDE RECORDS SUMMARY | 2025-08-16 15:18 | XMS_ITS | Clinical Summary ---
Author Organization [facility] Address [address] [place] [address] Care Team Providers Care Psychologist Private Practice Name Role Phone Obdulio Gauthier MD Primary Care Provider Source Comments [facility], [facility],non-owned Affiliates and Associated Physician Practices is amultiple site organization consisting of ambulatory clinics and hospital sitesin [place], [place], [place] and [place]. This disclosure is being madepursuant to the Care Everywhere program and may not contain all information available regarding this patient. Last updated 18.[facility] Allergies Active Allergy Reactions Criticality Noted Date [...] 12:36 PM CDT Height 157.5 cm (5' 2) 02/01/2016 12:3 6 PM CDT Body Mass [...] yrs (1 - 1-dose 75+ series) 2022 DEPRESSION SCREENING 09/14/2024 COVID-19 VACCINE (1 - 2024-2 6 season) 2025 INFLUENZA VACCINE (#1) 2025 8, 06/29/2017 HEPATITIS B VACCINE Aged Out No [...] age to complete this topic Insurance MEDICARE [facility] MEDICARE [facility] MEDICARE Care Teams Psychologist Private Practice Relationship Specialty Start Date End Date Obdulio Gauthier MD [address] [address] PCP - General 5/1/18
--- OUTSIDE RECORDS SUMMARY | 2025-08-16 15:18 | XMS_ITS | Clinical Summary ---
Author Organization [facility] Address [address] [place] [address] Care Team Providers Care Varnisher Plasticoater Name Role Phone Unavailable Primary Care Provider [...] - 1-dose 75+ series) 2022 COVID-19 Vaccine (2024-2 6 season) 2025 Influenza Adult (#1) 2025 Hepatitis A Vaccines Aged Out No long er eligible based on patient's age to complete this topic Meningococcal B Vaccine Aged Out No l onger eligible based on patient's age to complete this topic Meningococcal Vaccine Aged Out No surekha agustin eligible based on patient's age to complete this topic RSV Immunizations Under 20 Months Aged Out No longer eligible based on patient's age to complete this topic
[2025-08-16 18:47] LABS: Cholesterol 210 mg/dL (0-200); HDL Direct 53 mg/dL; Triglycerides 117 mg/dL (<150)
[2025-08-16 18:48] LABS: Alanine Aminotransferase 18 U/L (6-35); Albumin Level 4.4 g/dL (3.5-5.1); Alkaline Phosphatase 66 U/L (38-126); Anion Gap 8 mmol/L (4-12); Aspartate Amino Transferase 29 U/L (14-36); Bilirubin,Total 0.5 mg/dL (0.2-1.3); Blood Urea Nitrogen 11 mg/dL (7-17); Calcium 8.8 mg/dL (8.4-10.2); Carbon Dioxide 22 mmol/L (22-30); Chloride 101 mmol/L (98-107); Estimated Glomerular Filt Rate 49; Glucose 94 mg/dL (65-110); Magnesium 2.5 mg/dL (1.6-2.3); Potassium 4.0 mmol/L (3.4-5.0); Sodium 131 mmol/L (137-145); Total Protein 7.3 g/dL (6.3-8.2)
[2025-08-16 18:56] LABS: Hematocrit 35.3 % (37.0-47.0); Hemoglobin 10.8 g/dL (12.0-15.0); Immature Granulocyte Percent A 0.5 % (0-0.5); Lymphocytes Absolute Auto 2.69 K/mm3 (0.9-3.2); Mean Corpuscular HGB Conc 30.6 g/dl (32-36); Mean Corpuscular Hemoglobin 25.8 pg (26-34); Mean Corpuscular Volume 84.4 fl (80-100); Nucleated Red Blood Cells Absolute Auto 0.000 K/mm3 (0.0-0.012); Nucleated Red Blood Cells Perc 0.0 % (0.0-0.2); Platelet Count Result 400 k/mm3 (150-375); Red Blood Count 4.18 M/mm3 (4.2-5.4); White Blood Count 10.3 K/mm3 (4.5-10.0)
[2025-08-16 19:19] LABS: Thyroid Stimulating Hormone 3.590 uIU/mL (0.465-4.680)
[2025-08-16 19:37] LABS: Hemoglobin A1C 5.1 % (<5.7)
[2025-08-18 07:09] LABS: Measles Antibodies, IgG >300.0 AU/mL (Immune >16.4); Rubella Antibodies, IgG 12.50 index (Immune >0.99)
== END 2025-08-16 14:02 | disposition home or self-care (01) ==
PROVIDERS: PCP Family Medicine; Visit Provider Family Medicine
DX: E03.9 Hypothyroidism, unspecified (principal); N19 Unspecified kidney failure; Z86.2 Personal history of diseases of the blood and blood-forming organs and certain disorders involving the immune mechanism; M79.7 Fibromyalgia; G47.00 Insomnia, unspecified; G25.81 Restless legs syndrome; Z00.00 Encounter for general adult medical examination without abnormal findings
CPT/HCPCS: 36415; 80053; 80061; 83036; 83735; 84443; 85025; 86735; 86762; 86765